=== PATIENT | female | born 1945 | race Hispanic/Latino ===

== ENCOUNTER 2022-01-09 13:58 | Inpatient (IN) | payer MEDICARE, OTHER ==
[~2022-01-09] VITALS: Ht 149.9 cm; Wt 93.9 kg
[~2022-01-09 13:58] MED LIST: AMLODIPINE BESY10 MG PO; ASPIR-LOW81 MG PO; ATORVASTATIN CA20 MG PO; CARVEDILOL3.125 MG PO; CEFUROXIME250 MG PO; GABAPENTIN300 MG PO; LISINOPRIL10 MG PO; LOSARTAN POTAS100 MG PO; METFORMIN HCL500 MG PO; METRONIDAZOLE500 MG PO; MULTI-VITAMIN1 EACH PO; NORCO 7.5-3251 EACH PO; ZOFRAN ODT4 MG SL
[2022-01-09 14:52] LABS: BASOPHILS % 0.2 % (0.0-1.0); EOSINOPHILS % 0.2 % (0.0-6.0); HEMATOCRIT 31.1 % (34.2-44.1); HEMOGLOBIN 10.9 g/dL (12.0-16.0); LYMPHOCYTES # (AUTO) 1.3 (1.0-3.2); LYMPHOCYTES % 23.8 % (18.0-39.1); MEAN CORPUSCULAR HEMOGLOBIN 29.5 pg (28-32); MEAN CORPUSCULAR VOLUME 84.1 fL (81-99); MONOCYTES # (AUTO) 0.6 (0.2-0.8); MONOCYTES % 11.1 % (4.4-11.3); NEUTROPHILS # (AUTO) 3.6 (2.1-6.9); NEUTROPHILS % 64.2 % (38.7-80.0); PLATELET COUNT 184 x10e3/uL (140-360); RED CELL DISTRIBUTION WIDTH 17.3 % (11.7-14.4)
[2022-01-09 15:11] LABS: ALBUMIN 2.8 g/dL (3.5-5.0); ALBUMIN/GLOBULIN RATIO 0.6 (0.8-2.0); ANION GAP 20.1 mmol/L (8-16); CALCIUM 8.4 mg/dL (8.4-10.2); CREATININE, SERUM 2.56 mg/dL (0.57-1.11); POTASSIUM 3.1 mmol/L (3.5-5.1)
[2022-01-09 15:17] LABS: CREATINE KINASE MB 1.5 ng/mL (0-5.0)
[2022-01-09] MEDS ORDERED: SODIUM CHLORIDE FLUSH 10 ML SYR INJ PRN (17:00)
[2022-01-09] MEDS ORDERED: SODIUM CHLORIDE 0.9% 1000ML 1,000 ML IV ONE ×2 (17:00→21:00)
[2022-01-09 21:19] LABS: CLARITY,URINE SL CLOUDY (CLEAR); COLOR,URINE YELLOW (YELLOW); LEUKOCYTE ESTERASE ,URINE SMALL (NEGATIVE); NITRITE,URINE NEGATIVE (NEGATIVE)
[2022-01-09 21:20] LABS: KETONES,URINE NEGATIVE (NEGATIVE); PROTEIN,URINE DIPSTICK TRACE (NEGATIVE); URINE UROBILINOGEN 0.2 mg/dL (0.2 - 1)
[2022-01-09 21:30] LABS: RBC,URINE 0-5 /HPF (0-5)
[2022-01-09 21:31] LABS: AMORPHOUS SEDIMENT,URINE MANY (FEW); BACTERIA,URINE MODERATE /HPF; EPITHELIAL CELLS,URINE FEW /LPF
[2022-01-10] VITALS (8 sets, daily range): BP systolic 98–127; BP diastolic 42–54
[2022-01-10] MEDS ORDERED: SODIUM CHLORIDE 0.9% 250ML 250 ML ONE ×2 (05:49→11:24)
[2022-01-10 05:53] LABS: BASOPHILS % 0.2 % (0.0-1.0); EOSINOPHILS % 0.5 % (0.0-6.0); HEMATOCRIT 26.6 % (34.2-44.1); HEMOGLOBIN 9.6 g/dL (12.0-16.0); LYMPHOCYTES # (AUTO) 1.7 (1.0-3.2); LYMPHOCYTES % 31.2 % (18.0-39.1); MEAN CORPUSCULAR HEMOGLOBIN 29.3 pg (28-32); MEAN CORPUSCULAR HGB CONC 36.1 g/dL (31-35); MEAN CORPUSCULAR VOLUME 81.1 fL (81-99); MONOCYTES # (AUTO) 0.9 (0.2-0.8); MONOCYTES % 16.6 % (4.4-11.3); NEUTROPHILS # (AUTO) 2.8 (2.1-6.9); PLATELET COUNT 166 x10e3/uL (140-360); RED BLOOD COUNT 3.28 x10e6/uL (3.6-5.1); RED CELL DISTRIBUTION WIDTH 17.7 % (11.7-14.4)
[2022-01-10 06:15] LABS: ALBUMIN 2.3 g/dL (3.5-5.0); ALBUMIN/GLOBULIN RATIO 0.6 (0.8-2.0); ANION GAP 20.7 mmol/L (8-16); CALCIUM 8.3 mg/dL (8.4-10.2); CREATININE, SERUM 2.22 mg/dL (0.57-1.11)
[2022-01-10 06:26] LABS: POTASSIUM 2.7 mmol/L (3.5-5.1)
[2022-01-10] MEDS ORDERED: MAGNESIUM SULFATE 2GM/50ML IV ONE (08:15)
[2022-01-10] MEDS: POTASSIUM CHLORIDE 20MEQ/100ML 100 ML IV SCH ×2 (08:45→10:45)
[2022-01-10] MEDS ORDERED: MAGNESIUM SULFATE 2GM/50ML 50 ML IV ONE (08:45)
[2022-01-10] MEDS ORDERED: ONDANSETRON HCL INJ 2MG/ML 2ML 2 MG/ML VIAL IV PRN (10:00)
[2022-01-10] MEDS ORDERED: DEXTROSE 50% SYRINGE 50 ML IV PRN (10:00)
[2022-01-10] MEDS ORDERED: ACETAMINOPHEN 325 MG TAB PO PRN (10:00)
[2022-01-10] MEDS: SOD CHL 0.45%/POT CHL 20MEQ 1,000 ML IV SCH (10:25)
[2022-01-10] MEDS: INSULIN LISPRO 100 UNIT/1 ML 3ML VIAL SQ SCH ×3 (11:30→21:53)
[2022-01-10 15:37] LABS: ANION GAP 18.4 mmol/L (8-16); CALCIUM 8.7 mg/dL (8.4-10.2); CREATININE, SERUM 2.22 mg/dL (0.57-1.11); POTASSIUM 3.4 mmol/L (3.5-5.1)
[2022-01-10] MEDS: CARVEDILOL 3.125 MG TAB PO SCH (16:30)
[2022-01-11] VITALS (7 sets, daily range): BP systolic 97–113; BP diastolic 42–77
[2022-01-11] MEDS: SOD CHL 0.45%/POT CHL 20MEQ 1,000 ML IV SCH ×3 (01:06→13:35)
[2022-01-11 06:05] LABS: BASOPHILS % 0.2 % (0.0-1.0); EOSINOPHILS # (AUTO) 0.1 (0.0-0.4); EOSINOPHILS % 1.2 % (0.0-6.0); HEMATOCRIT 28.2 % (34.2-44.1); HEMOGLOBIN 9.8 g/dL (12.0-16.0); LYMPHOCYTES # (AUTO) 1.8 (1.0-3.2); LYMPHOCYTES % 33.9 % (18.0-39.1); MEAN CORPUSCULAR HEMOGLOBIN 29.3 pg (28-32); MEAN CORPUSCULAR HGB CONC 34.8 g/dL (31-35); MEAN CORPUSCULAR VOLUME 84.4 fL (81-99); MONOCYTES # (AUTO) 0.8 (0.2-0.8); MONOCYTES % 15.5 % (4.4-11.3); NEUTROPHILS # (AUTO) 2.5 (2.1-6.9); NEUTROPHILS % 48.6 % (38.7-80.0); PLATELET COUNT 179 x10e3/uL (140-360); RED BLOOD COUNT 3.34 x10e6/uL (3.6-5.1); RED CELL DISTRIBUTION WIDTH 18.4 % (11.7-14.4)
[2022-01-11 06:34] LABS: ALBUMIN 2.3 g/dL (3.5-5.0); ALBUMIN/GLOBULIN RATIO 0.5 (0.8-2.0); ANION GAP 20.3 mmol/L (8-16); CALCIUM 8.5 mg/dL (8.4-10.2); CREATININE, SERUM 1.9 mg/dL (0.57-1.11); POTASSIUM 3.3 mmol/L (3.5-5.1)
[2022-01-11] MEDS: INSULIN LISPRO 100 UNIT/1 ML 3ML VIAL SQ SCH ×4 (07:30→21:42)
[2022-01-11] MEDS: CARVEDILOL 3.125 MG TAB PO SCH ×2 (09:01→16:19)
[2022-01-11 10:31] LABS: ALBUMIN 2.5 g/dL (3.5-5.0); BILIRUBIN,DIRECT 2.8 mg/dL (0.0-0.5)
[2022-01-11] MEDS ORDERED: POTASSIUM BICARBONATE/CIT AC 20 MEQ TABLET.EFF PO ONE (11:30)
[2022-01-12] VITALS (9 sets, daily range): BP systolic 102–121; BP diastolic 48–59
[2022-01-12] MEDS: SOD CHL 0.45%/POT CHL 20MEQ 1,000 ML IV SCH ×3 (02:11→22:33)
[2022-01-12] MEDS: CARVEDILOL 3.125 MG TAB PO SCH ×2 (08:44→17:04)
[2022-01-12] MEDS: INSULIN LISPRO 100 UNIT/1 ML 3ML VIAL SQ SCH ×5 (08:52→22:06)
[2022-01-12] MEDS ORDERED: OMEPRAZOLE 20 MG CAP PO SCH (09:00)
[2022-01-13] VITALS (8 sets, daily range): BP systolic 104–124; BP diastolic 45–57
[2022-01-13 06:08] LABS: ALBUMIN 2.4 g/dL (3.5-5.0); ALBUMIN/GLOBULIN RATIO 0.6 (0.8-2.0); CALCIUM 9.3 mg/dL (8.4-10.2); CREATININE, SERUM 1.19 mg/dL (0.57-1.11)
[2022-01-13] MEDS: OMEPRAZOLE 20 MG CAP PO SCH (06:42)
[2022-01-13] MEDS: SOD CHL 0.45%/POT CHL 20MEQ 1,000 ML IV SCH ×2 (06:57→16:30)
[2022-01-13] MEDS: CARVEDILOL 3.125 MG TAB PO SCH ×2 (08:42→16:24)
[2022-01-13] MEDS: INSULIN LISPRO 100 UNIT/1 ML 3ML VIAL SQ SCH ×4 (08:46→21:46)
[2022-01-13 14:14] LABS: ALPHA-1-ANTITRYPSIN 202 mg/dL (101-187)
[2022-01-14] VITALS (7 sets, daily range): BP systolic 96–131; BP diastolic 46–74
[2022-01-14] MEDS: SOD CHL 0.45%/POT CHL 20MEQ 1,000 ML IV SCH (03:28)
[2022-01-14] MEDS ORDERED: MELATONIN 5 MG TABLET PO PRN (03:30)
[2022-01-14] MEDS: HYDROCODONE/APAP 7.5MG-325MG 1 EA TAB PO PRN (05:20)
[2022-01-14] MEDS: OMEPRAZOLE 20 MG CAP PO SCH (05:30)
[2022-01-14 06:27] LABS: INR 1.04; PROTHROMBIN TIME 14.5 seconds (11.9-14.5)
[2022-01-14 06:45] LABS: ALBUMIN 2.3 g/dL (3.5-5.0); ANION GAP 15.7 mmol/L (8-16); BILIRUBIN,DIRECT 4.5 mg/dL (0.0-0.5); CALCIUM 8.9 mg/dL (8.4-10.2); CREATININE, SERUM 1.1 mg/dL (0.57-1.11); POTASSIUM 3.7 mmol/L (3.5-5.1)
[2022-01-14] MEDS: INSULIN LISPRO 100 UNIT/1 ML 3ML VIAL SQ SCH ×4 (07:30→21:00)
[2022-01-14] MEDS: CARVEDILOL 3.125 MG TAB PO SCH ×2 (07:30→16:43)
[2022-01-14] MEDS ORDERED: PROMETHAZINE 12.5MG/ NACL 0.9% 12.5 MG/50 ML BAG IV ONE (10:45)
[2022-01-14 12:03] LABS: AMYLASE 94 U/L (25-125); LIPASE 78 U/L (8-78)
[2022-01-14] MEDS: DEXTROSE 5%/0.45% SOD CHL 1,000 ML IV SCH (12:25)
[2022-01-14] MEDS ORDERED: ONDANSETRON HCL 4 MG ORAL DISINTEGRATING TAB PO PRN (19:00)
[2022-01-14] MEDS ORDERED: TRAZODONE HCL 50 MG TAB PO PRN (19:00)
[2022-01-15] VITALS (8 sets, daily range): BP systolic 118–142; BP diastolic 41–78
[2022-01-15] MEDS: DEXTROSE 5%/0.45% SOD CHL 1,000 ML IV SCH ×3 (01:51→17:06)
[2022-01-15] MEDS: OMEPRAZOLE 20 MG CAP PO SCH (05:23)
[2022-01-15 06:42] LABS: INR 1.08
[2022-01-15 06:53] LABS: ALBUMIN 2.3 g/dL (3.5-5.0); ALBUMIN/GLOBULIN RATIO 0.5 (0.8-2.0); ANION GAP 12.9 mmol/L (8-16); CALCIUM 9.4 mg/dL (8.4-10.2); CREATININE, SERUM 1.18 mg/dL (0.57-1.11); POTASSIUM 3.9 mmol/L (3.5-5.1)
[2022-01-15] MEDS: INSULIN LISPRO 100 UNIT/1 ML 3ML VIAL SQ SCH ×4 (07:17→21:51)
[2022-01-15] MEDS: CARVEDILOL 3.125 MG TAB PO SCH ×2 (07:30→16:30)
[2022-01-15] MEDS ORDERED: LIDOCAINE HCL 4% 50 ML BTL ONE (12:50)
[2022-01-15] MEDS ORDERED: MIDAZOLAM HCL 2 MG/2 ML VIAL ONE (12:59)
[2022-01-15] MEDS ORDERED: IOPAMIDOL 300MG/ML 50ML INFUS..BTL IV ONE (13:16)
[2022-01-15] MEDS: HYDROCODONE/APAP 7.5MG-325MG 1 EA TAB PO PRN (17:11)
[2022-01-15] MEDS ORDERED: LIDOCAINE HCL 2% LOCAL INJ 5 ML SDV VIAL INJ ONE (19:34)
[2022-01-15] MEDS ORDERED: PROPOFOL IV EMULSION 10 MG/ML 20 ML VIAL ONE (19:34)
[2022-01-16 00:01] VITALS: BP 131/54
[2022-01-16] MEDS: DEXTROSE 5%/0.45% SOD CHL 1,000 ML IV SCH (03:45)
[2022-01-16 04:42] VITALS: BP 147/62
[2022-01-16] MEDS: OMEPRAZOLE 20 MG CAP PO SCH ×2 (05:51→05:52)
[2022-01-16 05:54] LABS: BASOPHILS % 0.3 % (0.0-1.0); EOSINOPHILS # (AUTO) 0.1 (0.0-0.4); EOSINOPHILS % 1.5 % (0.0-6.0); HEMATOCRIT 28.5 % (34.2-44.1); HEMOGLOBIN 9.9 g/dL (12.0-16.0); LYMPHOCYTES # (AUTO) 1.6 (1.0-3.2); MEAN CORPUSCULAR HGB CONC 34.7 g/dL (31-35); MEAN CORPUSCULAR VOLUME 83.6 fL (81-99); MONOCYTES # (AUTO) 0.6 (0.2-0.8); MONOCYTES % 9.7 % (4.4-11.3); NEUTROPHILS # (AUTO) 3.5 (2.1-6.9); NEUTROPHILS % 60.3 % (38.7-80.0); PLATELET COUNT 225 x10e3/uL (140-360); RED BLOOD COUNT 3.41 x10e6/uL (3.6-5.1)
[2022-01-16 06:27] LABS: ALBUMIN 2.6 g/dL (3.5-5.0); ALBUMIN/GLOBULIN RATIO 0.6 (0.8-2.0); ANION GAP 17.6 mmol/L (8-16); CALCIUM 9.7 mg/dL (8.4-10.2); CREATININE, SERUM 1.1 mg/dL (0.57-1.11); POTASSIUM 3.6 mmol/L (3.5-5.1)
[2022-01-16] MEDS: INSULIN LISPRO 100 UNIT/1 ML 3ML VIAL SQ SCH (07:30)
[2022-01-16] MEDS: CARVEDILOL 3.125 MG TAB PO SCH (08:27)
[2022-01-16 08:47] VITALS: BP 126/59
[2022-01-16 08:55] VITALS: BP 126/59
[2022-01-16] MEDS ORDERED: COREG3.125 MG PO (09:30)
== END 2022-01-16 10:47 | disposition home or self-care (01) | DRG 444 ==
LOC: ER 14:25 → ERHOLD 16:52 → MED/SURG2 22:45
PROVIDERS: ADMIT Internal Medicine; ATTEND Internal Medicine
PROC: 0F798DZ Dilation of Common Bile Duct with Intraluminal Device, Via Natural or Artificial Opening Endoscopic (ICD-10-PCS; 2022-01-15)
PROC: 0FD98ZX Extraction of Common Bile Duct, Via Natural or Artificial Opening Endoscopic, Diagnostic (ICD-10-PCS; principal; 2022-01-15 12:56)
DX: K83.8 Other specified diseases of biliary tract (principal); N17.0 Acute kidney failure with tubular necrosis; R17 Unspecified jaundice; Z68.41 Body mass index [BMI] 40.0-44.9, adult; N39.0 Urinary tract infection, site not specified; N18.30 Chronic kidney disease, stage 3 unspecified; E87.6 Hypokalemia; E11.22 Type 2 diabetes mellitus with diabetic chronic kidney disease; I12.9 Hypertensive chronic kidney disease with stage 1 through stage 4 chronic kidney disease, or unspecified chronic kidney disease; E66.9 Obesity, unspecified; R29.6 Repeated falls; D64.9 Anemia, unspecified; Z20.822 Contact with and (suspected) exposure to COVID-19; Z86.73 Personal history of transient ischemic attack (TIA), and cerebral infarction without residual deficits; E78.5 Hyperlipidemia, unspecified; E11.69 Type 2 diabetes mellitus with other specified complication; I25.10 Atherosclerotic heart disease of native coronary artery without angina pectoris; E86.0 Dehydration; R33.9 Retention of urine, unspecified; I25.2 Old myocardial infarction; Z79.899 Other long term (current) drug therapy; Z79.4 Long term (current) use of insulin
CPT/HCPCS: 0223U; 36415; 43260; 51700; 70450; 71045; 71250; 74176; 74181; 74328; 76770; 80048; 80053; 80076; 81001; 82103; 82140; 82150; 82390; 82550; 82553; 82948; 83690; 83735; 84484; 85025; 85610; 86039; 86255; 86301; 86304; 87070; 87205; 93005; 96372; 99251; 99284; J2001; J2250; J2405; J2543; J2550; J3475; J3480; J7030; J7050; Q0162

== ENCOUNTER 2022-02-15 15:10 | Inpatient (IN) | payer MEDICARE ==
[~2022-02-15] VITALS: Ht 149.9 cm; Wt 93.9 kg
[~2022-02-15 15:10] MED LIST changes: +COREG3.125 MG PO
[2022-02-15] MEDS ORDERED: SODIUM CHLORIDE 0.9% 1000ML 1,000 ML IV STA (15:14)
[2022-02-15] MEDS ORDERED: ACETAMINOPHEN 325 MG TAB PO STA (15:14)
[2022-02-15 15:57] LABS: BASOPHILS # (AUTO) 0.1 (0.0-0.1); BASOPHILS % 0.3 % (0.0-1.0); HEMATOCRIT 32.2 % (34.2-44.1); HEMOGLOBIN 10.7 g/dL (12.0-16.0); LYMPHOCYTES # (AUTO) 0.8 (1.0-3.2); LYMPHOCYTES % 4.9 % (18.0-39.1); MEAN CORPUSCULAR HEMOGLOBIN 29.3 pg (28-32); MEAN CORPUSCULAR HGB CONC 33.2 g/dL (31-35); MEAN CORPUSCULAR VOLUME 88.2 fL (81-99); MONOCYTES # (AUTO) 0.9 (0.2-0.8); MONOCYTES % 5.5 % (4.4-11.3); NEUTROPHILS # (AUTO) 14.5 (2.1-6.9); NEUTROPHILS % 87.5 % (38.7-80.0); PLATELET COUNT 346 x10e3/uL (140-360); RED BLOOD COUNT 3.65 x10e6/uL (3.6-5.1); RED CELL DISTRIBUTION WIDTH 18.4 % (11.7-14.4)
[2022-02-15 16:12] LABS: PROTHROMBIN TIME 14.1 seconds (11.9-14.5)
[2022-02-15 16:13] LABS: PARTIAL THROMBOPLASTIN TIME 27.9 seconds (23.8-35.5)
[2022-02-15 16:23] LABS: ALBUMIN 2.5 g/dL (3.5-5.0); ALBUMIN/GLOBULIN RATIO 0.5 (0.8-2.0); ANION GAP 18.5 mmol/L (8-16); CREATININE, SERUM 1.2 mg/dL (0.57-1.11); POTASSIUM 4.5 mmol/L (3.5-5.1)
[2022-02-15 16:29] LABS: CREATINE KINASE MB 0.7 ng/mL (0-5.0)
[2022-02-15] MEDS ORDERED: SODIUM CHLORIDE 0.9% 1000ML 1,000 ML IV SCH (16:30)
[2022-02-15] MEDS ORDERED: Morphine 4mg INJECTION 4 MG/ML INJ IV PRN (16:30)
[2022-02-15] MEDS ORDERED: ONDANSETRON HCL INJ 2MG/ML 2ML 2 MG/ML VIAL IV PRN (16:30)
[2022-02-15] MEDS ORDERED: SODIUM CHLORIDE 0.9% 1000ML 500 ML IV ONE (17:00)
[2022-02-15] MEDS ORDERED: IOPAMIDOL 370 MG/ML 100 ML INFUS..BTL INJ ONE (17:27)
[2022-02-15 20:00] VITALS: BP 105/52
[2022-02-15 23:07] LABS: CLARITY,URINE CLOUDY (CLEAR); COLOR,URINE AMBER (YELLOW); KETONES,URINE NEGATIVE (NEGATIVE); LEUKOCYTE ESTERASE ,URINE MODERATE (NEGATIVE); NITRITE,URINE NEGATIVE (NEGATIVE); PROTEIN,URINE DIPSTICK TRACE (NEGATIVE); URINE UROBILINOGEN 1 mg/dL (0.2 - 1)
[2022-02-15 23:10] VITALS: BP 105/52
[2022-02-15 23:13] LABS: BACTERIA,URINE MODERATE /HPF; EPITHELIAL CELLS,URINE FEW /LPF; WBC,URINE (MAN) >50 /HPF (0-5)
[2022-02-15 23:31] VITALS: BP 105/52
[2022-02-16] VITALS (10 sets, daily range): BP systolic 88–135; BP diastolic 43–62
[2022-02-16] MEDS: SODIUM CHLORIDE 0.9% 1000ML 1,000 ML IV SCH ×4 (01:20→23:00)
[2022-02-16] MEDS: ONDANSETRON HCL INJ 2MG/ML 2ML 2 MG/ML VIAL IV PRN ×2 (01:31→12:24)
[2022-02-16] MEDS: Morphine 4mg INJECTION 4 MG/ML INJ IV PRN ×2 (01:32→12:24)
[2022-02-16] MEDS: ACETAMINOPHEN 325 MG TAB PO PRN ×2 (05:17→16:42)
[2022-02-16 08:52] LABS: ALBUMIN 1.8 g/dL (3.5-5.0); BILIRUBIN,DIRECT 3.7 mg/dL (0.0-0.5)
[2022-02-16] MEDS ORDERED: DEXTROSE 50% SYRINGE 50 ML IV PRN (11:30)
[2022-02-16] MEDS: INSULIN LISPRO 100 UNIT/1 ML 3ML VIAL SQ SCH ×3 (12:20→20:28)
[2022-02-16] MEDS ORDERED: METRONIDAZOLE 500MG/NS 100ML 100 ML IV SCH (14:00)
[2022-02-16] MEDS ORDERED: LACTATED RINGER'S 1,000 ML IV ONE (20:45)
[2022-02-16] MEDS ORDERED: IBUPROFEN 400 MG TAB PO ONE (20:45)
[2022-02-16] MEDS ORDERED: ENOXAPARIN 30 MG/0.3 ML SYR SC ONE (23:15)
[2022-02-17] VITALS (8 sets, daily range): BP systolic 91–113; BP diastolic 41–77
[2022-02-17] MEDS: DEXTROSE 5%/LACTATED RINGERS 1,000 ML IV SCH ×3 (01:25→16:32)
[2022-02-17 06:16] LABS: BASOPHILS # (AUTO) 0.1 (0.0-0.1); BASOPHILS % 0.3 % (0.0-1.0); EOSINOPHILS % 0.1 % (0.0-6.0); HEMATOCRIT 25.2 % (34.2-44.1); HEMOGLOBIN 8.5 g/dL (12.0-16.0); LYMPHOCYTES # (AUTO) 1.5 (1.0-3.2); LYMPHOCYTES % 8.5 % (18.0-39.1); MEAN CORPUSCULAR HEMOGLOBIN 29.5 pg (28-32); MEAN CORPUSCULAR HGB CONC 33.7 g/dL (31-35); MEAN CORPUSCULAR VOLUME 87.5 fL (81-99); MONOCYTES # (AUTO) 1.1 (0.2-0.8); MONOCYTES % 6.7 % (4.4-11.3); NEUTROPHILS # (AUTO) 13.8 (2.1-6.9); NEUTROPHILS % 80.4 % (38.7-80.0); PLATELET COUNT 254 x10e3/uL (140-360); RED BLOOD COUNT 2.88 x10e6/uL (3.6-5.1); RED CELL DISTRIBUTION WIDTH 19.5 % (11.7-14.4)
[2022-02-17 06:50] LABS: ALBUMIN 1.7 g/dL (3.5-5.0); BILIRUBIN,DIRECT 2.8 mg/dL (0.0-0.5); CALCIUM 7.9 mg/dL (8.4-10.2); CREATININE, SERUM 1.68 mg/dL (0.57-1.11)
[2022-02-17] MEDS: INSULIN LISPRO 100 UNIT/1 ML 3ML VIAL SQ SCH ×4 (08:10→22:08)
[2022-02-17] MEDS ORDERED: ALLERGY EYE RELIEF OU (13:14)
[2022-02-17] MEDS ORDERED: NEURONTIN300 MG PO (13:14)
[2022-02-17] MEDS ORDERED: ACETAMINOPHEN COD PO (13:14)
[2022-02-17] MEDS ORDERED: [UNRECOGNIZED DRUG - OTHER] PO (13:14)
[2022-02-17] MEDS ORDERED: OMEPRAZOLE40 MG PO (13:14)
[2022-02-17] MEDS ORDERED: POTASSIUM GLUCONATE PO (13:14)
[2022-02-17] MEDS ORDERED: POTASSIUM GLUC PO (13:17)
[2022-02-17] MEDS: Morphine 2mg Syringe 2 MG/ML SYR IV PRN (22:08)
[2022-02-18] VITALS (7 sets, daily range): BP systolic 113–126; BP diastolic 47–84
[2022-02-18] MEDS: DEXTROSE 5%/LACTATED RINGERS 1,000 ML IV SCH (02:27)
[2022-02-18 06:12] LABS: BASOPHILS % 0.2 % (0.0-1.0); EOSINOPHILS % 0.3 % (0.0-6.0); HEMATOCRIT 25.2 % (34.2-44.1); HEMOGLOBIN 8.7 g/dL (12.0-16.0); LYMPHOCYTES # (AUTO) 1.3 (1.0-3.2); MEAN CORPUSCULAR HEMOGLOBIN 29.6 pg (28-32); MEAN CORPUSCULAR HGB CONC 34.5 g/dL (31-35); MEAN CORPUSCULAR VOLUME 85.7 fL (81-99); MONOCYTES # (AUTO) 0.7 (0.2-0.8); MONOCYTES % 5.2 % (4.4-11.3); NEUTROPHILS # (AUTO) 9.9 (2.1-6.9); NEUTROPHILS % 78.5 % (38.7-80.0); PLATELET COUNT 267 x10e3/uL (140-360); RED BLOOD COUNT 2.94 x10e6/uL (3.6-5.1); RED CELL DISTRIBUTION WIDTH 19.4 % (11.7-14.4)
[2022-02-18 06:32] LABS: ALBUMIN 1.7 g/dL (3.5-5.0); ANION GAP 16.9 mmol/L (8-16); BILIRUBIN,DIRECT 3.4 mg/dL (0.0-0.5); CALCIUM 8.1 mg/dL (8.4-10.2); CREATININE, SERUM 1.66 mg/dL (0.57-1.11); POTASSIUM 3.9 mmol/L (3.5-5.1)
[2022-02-18] MEDS: INSULIN LISPRO 100 UNIT/1 ML 3ML VIAL SQ SCH ×4 (09:03→20:25)
[2022-02-18] MEDS: Morphine 2mg Syringe 2 MG/ML SYR IV PRN ×3 (09:05→20:22)
[2022-02-18] MEDS: CEFTRIAXONE 2 GM in SODIUM CHLORIDE 0.9% 100 ML IV SCH (16:34)
[2022-02-19] VITALS (7 sets, daily range): BP systolic 105–153; BP diastolic 45–84
[2022-02-19] MEDS: Morphine 2mg Syringe 2 MG/ML SYR IV PRN ×2 (05:47→10:12)
[2022-02-19 06:18] LABS: BASOPHILS # (AUTO) 0.1 (0.0-0.1); BASOPHILS % 0.4 % (0.0-1.0); EOSINOPHILS # (AUTO) 0.1 (0.0-0.4); EOSINOPHILS % 0.7 % (0.0-6.0); HEMATOCRIT 29.5 % (34.2-44.1); HEMOGLOBIN 9.9 g/dL (12.0-16.0); LYMPHOCYTES # (AUTO) 1.7 (1.0-3.2); LYMPHOCYTES % 12.7 % (18.0-39.1); MEAN CORPUSCULAR HEMOGLOBIN 29.2 pg (28-32); MEAN CORPUSCULAR HGB CONC 33.6 g/dL (31-35); MONOCYTES # (AUTO) 0.9 (0.2-0.8); NEUTROPHILS # (AUTO) 10.2 (2.1-6.9); NEUTROPHILS % 76.4 % (38.7-80.0); PLATELET COUNT 281 x10e3/uL (140-360); RED BLOOD COUNT 3.39 x10e6/uL (3.6-5.1); RED CELL DISTRIBUTION WIDTH 19.6 % (11.7-14.4)
[2022-02-19 06:45] LABS: ALBUMIN 1.7 g/dL (3.5-5.0); ALBUMIN/GLOBULIN RATIO 0.4 (0.8-2.0); ANION GAP 15.2 mmol/L (8-16); CALCIUM 8.8 mg/dL (8.4-10.2); CREATININE, SERUM 1.48 mg/dL (0.57-1.11); POTASSIUM 4.2 mmol/L (3.5-5.1)
[2022-02-19] MEDS: INSULIN LISPRO 100 UNIT/1 ML 3ML VIAL SQ SCH ×4 (07:30→21:10)
[2022-02-19] MEDS: CEFTRIAXONE 2 GM in SODIUM CHLORIDE 0.9% 100 ML IV SCH (13:21)
[2022-02-20] VITALS (7 sets, daily range): BP systolic 123–168; BP diastolic 50–62
[2022-02-20 06:13] LABS: BASOPHILS # (AUTO) 0.1 (0.0-0.1); BASOPHILS % 0.4 % (0.0-1.0); EOSINOPHILS % 0.3 % (0.0-6.0); HEMATOCRIT 27.4 % (34.2-44.1); HEMOGLOBIN 9.1 g/dL (12.0-16.0); LYMPHOCYTES # (AUTO) 1.4 (1.0-3.2); LYMPHOCYTES % 11.1 % (18.0-39.1); MEAN CORPUSCULAR HEMOGLOBIN 28.9 pg (28-32); MEAN CORPUSCULAR HGB CONC 33.2 g/dL (31-35); MONOCYTES # (AUTO) 0.9 (0.2-0.8); MONOCYTES % 7.2 % (4.4-11.3); NEUTROPHILS # (AUTO) 9.7 (2.1-6.9); PLATELET COUNT 296 x10e3/uL (140-360); RED BLOOD COUNT 3.15 x10e6/uL (3.6-5.1); RED CELL DISTRIBUTION WIDTH 19.4 % (11.7-14.4)
[2022-02-20 06:40] LABS: ALBUMIN 1.7 g/dL (3.5-5.0); ALBUMIN/GLOBULIN RATIO 0.4 (0.8-2.0); CALCIUM 8.6 mg/dL (8.4-10.2)
[2022-02-20 07:00] LABS: CREATININE, SERUM 1.26 mg/dL (0.57-1.11)
[2022-02-20] MEDS: INSULIN LISPRO 100 UNIT/1 ML 3ML VIAL SQ SCH ×4 (08:30→21:00)
[2022-02-20] MEDS: CEFTRIAXONE 2 GM in SODIUM CHLORIDE 0.9% 100 ML IV SCH (12:39)
[2022-02-20] MEDS ORDERED: LACTATED RINGER'S 1,000 ML INJ ONE (20:15)
[2022-02-21] VITALS (8 sets, daily range): BP systolic 110–153; BP diastolic 50–113
[2022-02-21 06:07] LABS: INR 1.1; PROTHROMBIN TIME 15.2 seconds (11.9-14.5)
[2022-02-21 06:12] LABS: ALBUMIN 1.6 g/dL (3.5-5.0); ALBUMIN/GLOBULIN RATIO 0.4 (0.8-2.0); ANION GAP 14.9 mmol/L (8-16); CALCIUM 8.6 mg/dL (8.4-10.2); CREATININE, SERUM 1.03 mg/dL (0.57-1.11); POTASSIUM 3.9 mmol/L (3.5-5.1)
[2022-02-21] MEDS: INSULIN LISPRO 100 UNIT/1 ML 3ML VIAL SQ SCH ×4 (07:30→21:16)
[2022-02-21 07:52] LABS: BASOPHILS % 0.3 % (0.0-1.0); EOSINOPHILS # (AUTO) 0.1 (0.0-0.4); EOSINOPHILS % 0.4 % (0.0-6.0); HEMATOCRIT 27.4 % (34.2-44.1); HEMOGLOBIN 9.4 g/dL (12.0-16.0); LYMPHOCYTES # (AUTO) 1.6 (1.0-3.2); LYMPHOCYTES % 13.5 % (18.0-39.1); MEAN CORPUSCULAR HGB CONC 34.3 g/dL (31-35); MEAN CORPUSCULAR VOLUME 84.6 fL (81-99); MONOCYTES # (AUTO) 0.8 (0.2-0.8); MONOCYTES % 6.9 % (4.4-11.3); NEUTROPHILS # (AUTO) 8.7 (2.1-6.9); NEUTROPHILS % 74.8 % (38.7-80.0); PLATELET COUNT 369 x10e3/uL (140-360); RED BLOOD COUNT 3.24 x10e6/uL (3.6-5.1); RED CELL DISTRIBUTION WIDTH 19.1 % (11.7-14.4)
[2022-02-21] MEDS ORDERED: LIDOCAINE HCL 4% 50 ML BTL ONE (12:21)
[2022-02-21] MEDS ORDERED: IOPAMIDOL 300MG/ML 50ML INFUS..BTL IV ONE (12:22)
[2022-02-21] MEDS ORDERED: POVIDONE IODINE 0.05% 0.05 % ML PO ONE (12:45)
[2022-02-21] MEDS ORDERED: DEXAMETHASONE SOD PHOS INJ 4 MG/ML SDV ONE (12:45)
[2022-02-21] MEDS ORDERED: LIDOCAINE HCL 2% LOCAL INJ 5 ML SDV VIAL INJ ONE (12:45)
[2022-02-21] MEDS ORDERED: PROPOFOL IV EMULSION 10 MG/ML 20 ML VIAL ONE (12:45)
[2022-02-21] MEDS ORDERED: ROCURONIUM BROMIDE 10 MG/ML 5ML VIAL IV ONE (12:45)
[2022-02-21] MEDS ORDERED: ONDANSETRON HCL INJ 2MG/ML 2ML 2 MG/ML VIAL ONE (12:45)
[2022-02-21] MEDS ORDERED: SEVOFLURANE INHAL SOLN 250 ML PEN BTL ONE (12:45)
[2022-02-21] MEDS ORDERED: SUCCINYLCHOLINE CHLORIDE 20 MG/ML 10ML VIAL ONE (12:45)
[2022-02-21] MEDS: CEFTRIAXONE 2 GM in SODIUM CHLORIDE 0.9% 100 ML IV SCH (13:29)
[2022-02-21] MEDS: ACETAMINOPHEN 325 MG TAB PO PRN (14:56)
[2022-02-21] MEDS ORDERED: ONDANSETRON HCL 4 MG ORAL DISINTEGRATING TAB PO PRN (16:45)
[2022-02-21] MEDS ORDERED: ACETAMINOPHEN/CODEINE 300MG - 30MG TAB PO PRN (16:45)
[2022-02-21] MEDS: Morphine 2mg Syringe 2 MG/ML SYR IV PRN (20:41)
[2022-02-22 01:19] VITALS: BP 163/70
[2022-02-22 04:31] VITALS: BP 146/70
[2022-02-22 05:36] LABS: ALBUMIN 1.9 g/dL (3.5-5.0); BILIRUBIN,DIRECT 4.1 mg/dL (0.0-0.5)
[2022-02-22 08:00] VITALS: BP 139/52
[2022-02-22] MEDS: INSULIN LISPRO 100 UNIT/1 ML 3ML VIAL SQ SCH ×2 (08:00→11:45)
[2022-02-22 08:08] VITALS: BP 139/52
[2022-02-22 11:26] VITALS: BP 118/60
[2022-02-22] MEDS: CEFTRIAXONE 2 GM in SODIUM CHLORIDE 0.9% 100 ML IV SCH (13:37)
[2022-02-22 15:24] VITALS: BP 129/55
== END 2022-02-22 16:21 | disposition home or self-care (01) | DRG 698 ==
LOC: ER 15:20 → ERHOLD 16:22 → ER 17:43 → MED/SURG3 18:22
PROVIDERS: ADMIT Internal Medicine; ATTEND Internal Medicine
PROC: 3E03329 Introduction of Other Anti-infective into Peripheral Vein, Percutaneous Approach (ICD-10-PCS; 2022-02-18)
PROC: 0FB98ZX Excision of Common Bile Duct, Via Natural or Artificial Opening Endoscopic, Diagnostic (ICD-10-PCS; 2022-02-21)
PROC: 0FPB8DZ Removal of Intraluminal Device from Hepatobiliary Duct, Via Natural or Artificial Opening Endoscopic (ICD-10-PCS; 2022-02-21)
PROC: BF101ZZ Fluoroscopy of Bile Ducts using Low Osmolar Contrast (ICD-10-PCS; 2022-02-21)
PROC: 0F798DZ Dilation of Common Bile Duct with Intraluminal Device, Via Natural or Artificial Opening Endoscopic (ICD-10-PCS; principal; 2022-02-21 13:09)
DX: T83.593A Infection and inflammatory reaction due to other urinary stents, initial encounter (principal); C22.1 Intrahepatic bile duct carcinoma; A41.50 Gram-negative sepsis, unspecified; A41.51 Sepsis due to Escherichia coli [E. coli]; R65.20 Severe sepsis without septic shock; Z68.41 Body mass index [BMI] 40.0-44.9, adult; N39.0 Urinary tract infection, site not specified; N17.9 Acute kidney failure, unspecified; I10 Essential (primary) hypertension; E11.9 Type 2 diabetes mellitus without complications; E66.01 Morbid (severe) obesity due to excess calories; G89.4 Chronic pain syndrome; D64.9 Anemia, unspecified
CPT/HCPCS: 36415; 43260; 71045; 74177; 74181; 74328; 80048; 80053; 80076; 81001; 82140; 82550; 82553; 82948; 83605; 83690; 84484; 85025; 85610; 85730; 86644; 86645; 86663; 86664; 86665; 87040; 87071; 87186; 87205; 87400; 88112; 88300; 88304; 88305; 88333; 93005; 94799; 99251; 99284; J0330; J0696; J1100; J1650; J2001; J2270; J2405; J2543; J7030; J7050; J7121; Q0162; Q9967

== ENCOUNTER 2022-04-08 23:11 | Inpatient (IN) | payer MEDICARE ==
[~2022-04-08] VITALS: Ht 149.9 cm; Wt 82.8 kg
[~2022-04-08 23:11] MED LIST changes: +ACETAMINOPHEN COD PO; +ALLERGY EYE RELIEF OU; +NEURONTIN300 MG PO; +OMEPRAZOLE40 MG PO; +POTASSIUM GLUC PO; +POTASSIUM GLUCONATE PO; +[UNRECOGNIZED DRUG - OTHER] PO
[2022-04-08] MEDS ORDERED: ASPIRIN 81 MG CHEW TAB PO ONE (23:30)
[2022-04-08] MEDS ORDERED: SODIUM CHLORIDE 0.9% 1000ML 1,000 ML IV ONE (23:45)
[2022-04-08 23:57] LABS: BASOPHILS % 0.1 % (0.0-1.0); EOSINOPHILS % 0.1 % (0.0-6.0); HEMATOCRIT 28.1 % (34.2-44.1); HEMOGLOBIN 8.6 g/dL (12.0-16.0); LYMPHOCYTES # (AUTO) 0.6 (1.0-3.2); LYMPHOCYTES % 4.1 % (18.0-39.1); MEAN CORPUSCULAR HEMOGLOBIN 31.5 pg (28-32); MEAN CORPUSCULAR HGB CONC 30.6 g/dL (31-35); MEAN CORPUSCULAR VOLUME 102.9 fL (81-99); MONOCYTES # (AUTO) 0.8 (0.2-0.8); NEUTROPHILS # (AUTO) 12.1 (2.1-6.9); PLATELET COUNT 229 x10e3/uL (140-360); RED BLOOD COUNT 2.73 x10e6/uL (3.6-5.1); RED CELL DISTRIBUTION WIDTH 15.7 % (11.7-14.4)
[2022-04-09] VITALS (41 sets, daily range): BP systolic 74–138; BP diastolic 17–107
[2022-04-09 00:15] LABS: ALBUMIN 1.9 g/dL (3.5-5.0); ALBUMIN/GLOBULIN RATIO 0.4 (0.8-2.0); ANION GAP 19.7 mmol/L (8-16); CALCIUM 8.4 mg/dL (8.4-10.2); CREATININE, SERUM 1.91 mg/dL (0.57-1.11); POTASSIUM 4.7 mmol/L (3.5-5.1)
[2022-04-09] MEDS ORDERED: SODIUM CHLORIDE 0.9% 500ML 500 ML IV ONE (00:15)
[2022-04-09] MEDS ORDERED: SODIUM CHLORIDE 0.9% 1000ML 1,000 ML IV ONE ×2 (00:15→02:45)
[2022-04-09 00:23] LABS: CREATINE KINASE MB 1.1 ng/mL (0-5.0)
[2022-04-09 02:24] LABS: CLARITY,URINE CLOUDY (CLEAR); COLOR,URINE AMBER (YELLOW); LEUKOCYTE ESTERASE ,URINE NEGATIVE (NEGATIVE)
[2022-04-09 02:25] LABS: KETONES,URINE NEGATIVE (NEGATIVE); NITRITE,URINE NEGATIVE (NEGATIVE); PROTEIN,URINE DIPSTICK 1+ (NEGATIVE); URINE UROBILINOGEN 0.2 mg/dL (0.2 - 1)
[2022-04-09 02:28] LABS: WBC,URINE (MAN) >50 /HPF (0-5)
[2022-04-09 02:29] LABS: BACTERIA,URINE MANY /HPF; EPITHELIAL CELLS,URINE FEW /LPF
[2022-04-09 02:30] LABS: TRANSITIONAL EPI CELLS,URINE MODERATE
[2022-04-09] MEDS ORDERED: SODIUM CHLORIDE 0.9% 1000ML 1,000 ML IV SCH (02:30)
[2022-04-09 02:31] LABS: MUCUS,URINE FEW (RARE)
[2022-04-09] MEDS: NOREPINEPHRINE 8 MG/D5W 250 ML 250 ML IV SCH ×5 (02:54→19:55)
[2022-04-09] MEDS ORDERED: NOREPINEPHRINE 8 MG/D5W 250 ML 250 ML ONE (03:04)
[2022-04-09] MEDS ORDERED: DEXTROSE 50% SYRINGE 50 ML IV PRN (04:30)
[2022-04-09] MEDS ORDERED: ONDANSETRON HCL INJ 2MG/ML 2ML 2 MG/ML VIAL IV PRN (04:30)
[2022-04-09 06:41] LABS: CREATINE KINASE MB 1.6 ng/mL (0-5.0)
[2022-04-09] MEDS: VASOPRESSIN 60 UNIT in DEXTROSE 5% 50ML 57 ML IV SCH (07:44)
[2022-04-09] MEDS: SODIUM BICARBONATE 8.4% 50 ML in SODIUM CHLORIDE 0.45% 1,000 ML IV SCH ×2 (08:01→18:41)
[2022-04-09] MEDS: INSULIN REGULAR, HUMAN 100 UNIT/1 ML SQ SCH ×4 (08:15→21:00)
[2022-04-09 08:25] LABS: BASOPHILS % 0.2 % (0.0-1.0); HEMATOCRIT 24.4 % (34.2-44.1); HEMOGLOBIN 7.5 g/dL (12.0-16.0); MEAN CORPUSCULAR HEMOGLOBIN 31.8 pg (28-32); MEAN CORPUSCULAR HGB CONC 30.7 g/dL (31-35); MEAN CORPUSCULAR VOLUME 103.4 fL (81-99); MONOCYTES # (AUTO) 1.5 (0.2-0.8); MONOCYTES % 5.9 % (4.4-11.3); NEUTROPHILS # (AUTO) 21.7 (2.1-6.9); NEUTROPHILS % 85.6 % (38.7-80.0); PLATELET COUNT 293 x10e3/uL (140-360); RED BLOOD COUNT 2.36 x10e6/uL (3.6-5.1); RED CELL DISTRIBUTION WIDTH 15.9 % (11.7-14.4)
[2022-04-09 08:44] LABS: ALBUMIN 1.7 g/dL (3.5-5.0); ALBUMIN/GLOBULIN RATIO 0.4 (0.8-2.0); CALCIUM 7.3 mg/dL (8.4-10.2); CREATININE, SERUM 1.78 mg/dL (0.57-1.11)
[2022-04-09 08:53] LABS: INR 1.27; PROTHROMBIN TIME 16.1 seconds (11.9-14.5)
[2022-04-09 08:54] LABS: PARTIAL THROMBOPLASTIN TIME 30.7 seconds (23.8-35.5)
[2022-04-09 09:30] LABS: BAND NEUTROPHILS % (MANUAL) 10 %; LYMPHOCYTES % (MANUAL) 5 % (19-48); METAMYELOCYTES % (MANUAL) 1 % (0-0); MONOCYTES % (MANUAL) 5 % (3.4-9.0); NEUTROPHILS % (MANUAL) 79 % (40-74); NUCLEATED RED BLOOD CELLS 2; PLATELET ESTIMATE ADEQUATE; PLATELET MORPHOLOGY COMMENT NORMAL
[2022-04-09] MEDS: FAMOTIDINE 20 MG/2 ML VIAL IV SCH ×2 (10:14→17:39)
[2022-04-09] MEDS ORDERED: SODIUM CHLORIDE 0.9% 1000ML 1,000 ML ONE (11:53)
[2022-04-09] MEDS: Morphine 2mg Syringe 2 MG/ML SYR IV PRN (13:24)
[2022-04-09 14:59] LABS: CREATINE KINASE MB 2.2 ng/mL (0-5.0)
[2022-04-09] MEDS ORDERED: GENTAMICIN 120MG/NS 100ML 100 ML IV ONE (17:30)
[2022-04-09] MEDS: ENOXAPARIN 30 MG/0.3 ML SYR SC SCH (17:39)
[2022-04-10] VITALS (56 sets, daily range): BP systolic 53–159; BP diastolic 34–143
[2022-04-10] MEDS: VASOPRESSIN 60 UNIT in DEXTROSE 5% 50ML 57 ML IV SCH (01:59)
[2022-04-10] MEDS: Morphine 2mg Syringe 2 MG/ML SYR IV PRN ×2 (02:49→20:57)
[2022-04-10] MEDS: SODIUM BICARBONATE 8.4% 50 ML in SODIUM CHLORIDE 0.45% 1,000 ML IV SCH ×2 (04:43→15:31)
[2022-04-10] MEDS: NOREPINEPHRINE 8 MG/D5W 250 ML 250 ML IV SCH ×3 (05:44→20:51)
[2022-04-10 06:22] LABS: BASOPHILS % 0.2 % (0.0-1.0); EOSINOPHILS % 0.1 % (0.0-6.0); HEMATOCRIT 25.5 % (34.2-44.1); HEMOGLOBIN 7.9 g/dL (12.0-16.0); LYMPHOCYTES % 10.4 % (18.0-39.1); MEAN CORPUSCULAR HEMOGLOBIN 31.6 pg (28-32); MONOCYTES # (AUTO) 1.9 (0.2-0.8); MONOCYTES % 9.9 % (4.4-11.3); NEUTROPHILS # (AUTO) 14.8 (2.1-6.9); NEUTROPHILS % 75.9 % (38.7-80.0); PLATELET COUNT 309 x10e3/uL (140-360); RED CELL DISTRIBUTION WIDTH 16.2 % (11.7-14.4)
[2022-04-10 06:38] LABS: ALBUMIN 1.6 g/dL (3.5-5.0); ALBUMIN/GLOBULIN RATIO 0.4 (0.8-2.0); ANION GAP 19.2 mmol/L (8-16); CALCIUM 7.3 mg/dL (8.4-10.2); CREATININE, SERUM 2.3 mg/dL (0.57-1.11); POTASSIUM 5.2 mmol/L (3.5-5.1)
[2022-04-10 07:18] LABS: CREATINE KINASE MB 2.6 ng/mL (0-5.0)
[2022-04-10] MEDS: INSULIN REGULAR, HUMAN 100 UNIT/1 ML SQ SCH ×4 (07:32→21:00)
[2022-04-10] MEDS: FAMOTIDINE 20 MG/2 ML VIAL IV SCH ×2 (10:30→17:32)
[2022-04-10] MEDS: ENOXAPARIN 30 MG/0.3 ML SYR SC SCH (17:00)
[2022-04-10 18:45] LABS: ABG PCO2 33 mmHg (35-45); ABG PH 7.37 (7.35-7.45); ABG PO2 77 mmHg (80-105)
[2022-04-10 18:46] LABS: ABG HCO3 19 mmol/L (22-26); ABG TCO2 20
[2022-04-10] MEDS ORDERED: ACETAMINOPHEN 1000 MG/100 ML IV PRN (23:45)
[2022-04-11] VITALS (68 sets, daily range): BP systolic 73–160; BP diastolic 28–82
[2022-04-11] MEDS: SODIUM BICARBONATE 8.4% 50 ML in SODIUM CHLORIDE 0.45% 1,000 ML IV SCH ×3 (01:49→22:21)
[2022-04-11] MEDS: NOREPINEPHRINE 8 MG/D5W 250 ML 250 ML IV SCH ×2 (06:20→12:27)
[2022-04-11 07:03] LABS: BASOPHILS # (AUTO) 0.1 (0.0-0.1); BASOPHILS % 0.3 % (0.0-1.0); HEMATOCRIT 28.4 % (34.2-44.1); HEMOGLOBIN 8.9 g/dL (12.0-16.0); LYMPHOCYTES # (AUTO) 1.9 (1.0-3.2); LYMPHOCYTES % 6.4 % (18.0-39.1); MEAN CORPUSCULAR HEMOGLOBIN 31.6 pg (28-32); MEAN CORPUSCULAR HGB CONC 31.3 g/dL (31-35); MEAN CORPUSCULAR VOLUME 100.7 fL (81-99); MONOCYTES # (AUTO) 1.7 (0.2-0.8); MONOCYTES % 5.8 % (4.4-11.3); NEUTROPHILS # (AUTO) 25.5 (2.1-6.9); NEUTROPHILS % 85.3 % (38.7-80.0); PLATELET COUNT 249 x10e3/uL (140-360); RED BLOOD COUNT 2.82 x10e6/uL (3.6-5.1); RED CELL DISTRIBUTION WIDTH 16.4 % (11.7-14.4)
[2022-04-11 07:27] LABS: ALBUMIN 1.5 g/dL (3.5-5.0); ALBUMIN/GLOBULIN RATIO 0.3 (0.8-2.0); ANION GAP 19.1 mmol/L (8-16); CALCIUM 7.6 mg/dL (8.4-10.2); CREATININE, SERUM 2.69 mg/dL (0.57-1.11); POTASSIUM 5.1 mmol/L (3.5-5.1)
[2022-04-11 08:08] LABS: LYMPHOCYTES % (MANUAL) 5 % (19-48); MONOCYTES % (MANUAL) 1 % (3.4-9.0); NEUTROPHILS % (MANUAL) 94 % (40-74); NUCLEATED RED BLOOD CELLS 1; PLATELET ESTIMATE ADEQUATE; PLATELET MORPHOLOGY COMMENT NORMAL; RBC MORPHOLOGY COMMENT NORMAL
[2022-04-11] MEDS: INSULIN REGULAR, HUMAN 100 UNIT/1 ML SQ SCH ×4 (08:19→21:00)
[2022-04-11] MEDS: FAMOTIDINE 20 MG/2 ML VIAL IV SCH ×2 (08:19→16:53)
[2022-04-11] MEDS: VASOPRESSIN 60 UNIT in DEXTROSE 5% 50ML 57 ML IV SCH (08:21)
[2022-04-11] MEDS: CEFTRIAXONE 2 GM in SODIUM CHLORIDE 0.9% 100 ML IV SCH (11:39)
[2022-04-11] MEDS ORDERED: HEPARIN SOD (PORCINE) 1000 UNIT/ML SDV ONE (11:56)
[2022-04-11] MEDS ORDERED: SODIUM CHLORIDE 0.9% 1000ML 2,000 ML ONE (11:57)
[2022-04-11] MEDS ORDERED: GENTAMICIN SULFATE 300 MG in SODIUM CHLORIDE 0.9% 100 ML IV ONE (12:00)
[2022-04-11] MEDS ORDERED: MANNITOL 25% 12.5GM/50 ML VIAL IV ONE (12:01)
[2022-04-11] MEDS: Morphine 2mg Syringe 2 MG/ML SYR IV PRN (21:00)
[2022-04-12] VITALS (98 sets, daily range): BP systolic 70–134; BP diastolic 34–98
[2022-04-12] MEDS: Morphine 2mg Syringe 2 MG/ML SYR IV PRN ×4 (00:45→22:57)
[2022-04-12] MEDS: NOREPINEPHRINE 8 MG/D5W 250 ML 250 ML IV SCH ×3 (04:29→20:42)
[2022-04-12 06:51] LABS: BASOPHILS # (AUTO) 0.1 (0.0-0.1); BASOPHILS % 0.4 % (0.0-1.0); EOSINOPHILS # (AUTO) 0.1 (0.0-0.4); EOSINOPHILS % 0.3 % (0.0-6.0); HEMATOCRIT 27.7 % (34.2-44.1); HEMOGLOBIN 9.4 g/dL (12.0-16.0); LYMPHOCYTES # (AUTO) 1.8 (1.0-3.2); LYMPHOCYTES % 8.2 % (18.0-39.1); MEAN CORPUSCULAR HEMOGLOBIN 31.1 pg (28-32); MEAN CORPUSCULAR HGB CONC 33.9 g/dL (31-35); MEAN CORPUSCULAR VOLUME 91.7 fL (81-99); MONOCYTES # (AUTO) 1.5 (0.2-0.8); MONOCYTES % 6.7 % (4.4-11.3); NEUTROPHILS # (AUTO) 18.4 (2.1-6.9); NEUTROPHILS % 82.5 % (38.7-80.0); PLATELET COUNT 261 x10e3/uL (140-360); RED BLOOD COUNT 3.02 x10e6/uL (3.6-5.1); RED CELL DISTRIBUTION WIDTH 15.9 % (11.7-14.4)
[2022-04-12 07:10] LABS: ALBUMIN 1.2 g/dL (3.5-5.0); ALBUMIN/GLOBULIN RATIO 0.3 (0.8-2.0); ANION GAP 20.9 mmol/L (8-16); CALCIUM 7.4 mg/dL (8.4-10.2); CREATININE, SERUM 1.83 mg/dL (0.57-1.11); POTASSIUM 3.9 mmol/L (3.5-5.1)
[2022-04-12] MEDS: INSULIN REGULAR, HUMAN 100 UNIT/1 ML SQ SCH ×4 (07:30→21:00)
[2022-04-12] MEDS: VASOPRESSIN 60 UNIT in DEXTROSE 5% 50ML 57 ML IV SCH (07:44)
[2022-04-12] MEDS: FAMOTIDINE 20 MG/2 ML VIAL IV SCH ×2 (08:11→17:12)
[2022-04-12] MEDS ORDERED: MIDAZOLAM HCL 2 MG/2 ML VIAL ONE (12:01)
[2022-04-12] MEDS ORDERED: FENTANYL CITRATE/PF 100MCG/2 ML INJ ONE (12:01)
[2022-04-12] MEDS: CEFTRIAXONE 2 GM in SODIUM CHLORIDE 0.9% 100 ML IV SCH (13:51)
[2022-04-12] MEDS ORDERED: SODIUM CHLORIDE 0.9% 1000ML 2,000 ML IV PRN (16:30)
[2022-04-12] MEDS ORDERED: HEPARIN SOD (PORCINE) 1000 UNIT/ML SDV IV PRN (16:30)
[2022-04-12] MEDS ORDERED: HALOPERIDOL LACTATE 5 MG/ML VIAL IM ONE (17:45)
[2022-04-13] VITALS (82 sets, daily range): BP systolic 72–148; BP diastolic 37–115
[2022-04-13] MEDS: NOREPINEPHRINE 8 MG/D5W 250 ML 250 ML IV SCH ×2 (03:21→11:03)
[2022-04-13] MEDS: Morphine 2mg Syringe 2 MG/ML SYR IV PRN ×4 (03:21→19:16)
[2022-04-13 07:38] LABS: ALBUMIN 1.3 g/dL (3.5-5.0); ALBUMIN/GLOBULIN RATIO 0.3 (0.8-2.0); CALCIUM 7.8 mg/dL (8.4-10.2); CREATININE, SERUM 2.02 mg/dL (0.57-1.11)
[2022-04-13] MEDS: VASOPRESSIN 60 UNIT in DEXTROSE 5% 50ML 57 ML IV SCH (07:44)
[2022-04-13] MEDS: INSULIN REGULAR, HUMAN 100 UNIT/1 ML SQ SCH ×4 (08:16→19:50)
[2022-04-13] MEDS: FAMOTIDINE 20 MG/2 ML VIAL IV SCH ×2 (08:17→17:13)
[2022-04-13] MEDS ORDERED: Vancomycin IV 1 GM in SODIUM CHLORIDE 0.9% 250ML 250 ML IV SCH (09:00)
[2022-04-13] MEDS: ALBUMIN 25% 25GM 100ML 0.25 GM/ML BTL IV SCH ×2 (11:01→17:14)
[2022-04-13] MEDS: CEFTRIAXONE 2 GM in SODIUM CHLORIDE 0.9% 100 ML IV SCH (12:51)
[2022-04-13] MEDS ORDERED: FLUCONAZOLE 100 MG/NS 50 ML 50 ML IV ONE (13:15)
[2022-04-13 14:10] LABS: BASOPHILS # (AUTO) 0.1 (0.0-0.1); BASOPHILS % 0.5 % (0.0-1.0); EOSINOPHILS # (AUTO) 0.1 (0.0-0.4); EOSINOPHILS % 0.7 % (0.0-6.0); HEMATOCRIT 25.4 % (34.2-44.1); HEMOGLOBIN 8.5 g/dL (12.0-16.0); LYMPHOCYTES # (AUTO) 2.9 (1.0-3.2); LYMPHOCYTES % 17.1 % (18.0-39.1); MEAN CORPUSCULAR HEMOGLOBIN 31.3 pg (28-32); MEAN CORPUSCULAR HGB CONC 33.5 g/dL (31-35); MEAN CORPUSCULAR VOLUME 93.4 fL (81-99); MONOCYTES # (AUTO) 1.3 (0.2-0.8); MONOCYTES % 7.3 % (4.4-11.3); NEUTROPHILS # (AUTO) 12.2 (2.1-6.9); NEUTROPHILS % 71.5 % (38.7-80.0); PLATELET COUNT 220 x10e3/uL (140-360); RED BLOOD COUNT 2.72 x10e6/uL (3.6-5.1); RED CELL DISTRIBUTION WIDTH 16.1 % (11.7-14.4)
[2022-04-13] MEDS: ENOXAPARIN 30 MG/0.3 ML SYR SC SCH (17:14)
[2022-04-14] VITALS (75 sets, daily range): BP systolic 77–164; BP diastolic 40–138
[2022-04-14] MEDS: ALBUMIN 25% 25GM 100ML 0.25 GM/ML BTL IV SCH (00:02)
[2022-04-14] MEDS: Morphine 2mg Syringe 2 MG/ML SYR IV PRN ×5 (00:30→22:03)
[2022-04-14 06:46] LABS: BASOPHILS % 0.4 % (0.0-1.0); EOSINOPHILS # (AUTO) 0.2 (0.0-0.4); EOSINOPHILS % 1.7 % (0.0-6.0); HEMOGLOBIN 7.3 g/dL (12.0-16.0); LYMPHOCYTES # (AUTO) 2.2 (1.0-3.2); LYMPHOCYTES % 20.5 % (18.0-39.1); MEAN CORPUSCULAR HEMOGLOBIN 30.8 pg (28-32); MEAN CORPUSCULAR HGB CONC 33.5 g/dL (31-35); MONOCYTES # (AUTO) 0.9 (0.2-0.8); MONOCYTES % 8.7 % (4.4-11.3); NEUTROPHILS # (AUTO) 7.1 (2.1-6.9); NEUTROPHILS % 66.1 % (38.7-80.0); PLATELET COUNT 179 x10e3/uL (140-360); RED BLOOD COUNT 2.37 x10e6/uL (3.6-5.1)
[2022-04-14 06:51] LABS: HEMATOCRIT 21.8 % (34.2-44.1)
[2022-04-14] MEDS: INSULIN REGULAR, HUMAN 100 UNIT/1 ML SQ SCH ×4 (07:30→20:31)
[2022-04-14 07:37] LABS: ALBUMIN 2.3 g/dL (3.5-5.0); ALBUMIN/GLOBULIN RATIO 0.7 (0.8-2.0); ANION GAP 16.8 mmol/L (8-16); CALCIUM 7.8 mg/dL (8.4-10.2); CREATININE, SERUM 2.39 mg/dL (0.57-1.11); POTASSIUM 3.8 mmol/L (3.5-5.1)
[2022-04-14] MEDS: FAMOTIDINE 20 MG/2 ML VIAL IV SCH ×2 (08:31→17:30)
[2022-04-14] MEDS ORDERED: ZIPRASIDONE 20 MG VIAL IM ONE (11:30)
[2022-04-14] MEDS: CEFTRIAXONE 2 GM in SODIUM CHLORIDE 0.9% 100 ML IV SCH (13:38)
[2022-04-14] MEDS: ENOXAPARIN 30 MG/0.3 ML SYR SC SCH (17:30)
[2022-04-14] MEDS: NOREPINEPHRINE 8 MG/D5W 250 ML 250 ML IV SCH (18:15)
[2022-04-15] VITALS (40 sets, daily range): BP systolic 83–144; BP diastolic 41–75
[2022-04-15] MEDS: Morphine 2mg Syringe 2 MG/ML SYR IV PRN (06:12)
[2022-04-15 06:53] LABS: BASOPHILS % 0.4 % (0.0-1.0); EOSINOPHILS # (AUTO) 0.1 (0.0-0.4); EOSINOPHILS % 1.8 % (0.0-6.0); HEMOGLOBIN 7.8 g/dL (12.0-16.0); LYMPHOCYTES # (AUTO) 1.8 (1.0-3.2); LYMPHOCYTES % 24.2 % (18.0-39.1); MEAN CORPUSCULAR HEMOGLOBIN 30.7 pg (28-32); MEAN CORPUSCULAR HGB CONC 31.2 g/dL (31-35); MEAN CORPUSCULAR VOLUME 98.4 fL (81-99); MONOCYTES # (AUTO) 0.6 (0.2-0.8); MONOCYTES % 8.6 % (4.4-11.3); NEUTROPHILS # (AUTO) 4.6 (2.1-6.9); NEUTROPHILS % 62.9 % (38.7-80.0); PLATELET COUNT 165 x10e3/uL (140-360); RED BLOOD COUNT 2.54 x10e6/uL (3.6-5.1)
[2022-04-15 07:10] LABS: ALBUMIN 1.8 g/dL (3.5-5.0); ALBUMIN/GLOBULIN RATIO 0.6 (0.8-2.0); ANION GAP 15.1 mmol/L (8-16); CALCIUM 7.7 mg/dL (8.4-10.2); CREATININE, SERUM 2.1 mg/dL (0.57-1.11); POTASSIUM 4.1 mmol/L (3.5-5.1)
[2022-04-15] MEDS: INSULIN REGULAR, HUMAN 100 UNIT/1 ML SQ SCH ×4 (07:30→21:00)
[2022-04-15] MEDS: FAMOTIDINE 20 MG/2 ML VIAL IV SCH ×2 (08:21→16:15)
[2022-04-15] MEDS: CEFTRIAXONE 2 GM in SODIUM CHLORIDE 0.9% 100 ML IV SCH (12:24)
[2022-04-15] MEDS: ENOXAPARIN 30 MG/0.3 ML SYR SC SCH (16:15)
[2022-04-16] VITALS (16 sets, daily range): BP systolic 114–168; BP diastolic 54–143
[2022-04-16] MEDS: Morphine 2mg Syringe 2 MG/ML SYR IV PRN ×2 (03:21→23:09)
[2022-04-16 06:33] LABS: BASOPHILS % 0.4 % (0.0-1.0); EOSINOPHILS # (AUTO) 0.1 (0.0-0.4); EOSINOPHILS % 1.4 % (0.0-6.0); HEMOGLOBIN 8.6 g/dL (12.0-16.0); LYMPHOCYTES # (AUTO) 1.6 (1.0-3.2); LYMPHOCYTES % 19.8 % (18.0-39.1); MEAN CORPUSCULAR HEMOGLOBIN 31.2 pg (28-32); MEAN CORPUSCULAR HGB CONC 33.1 g/dL (31-35); MONOCYTES # (AUTO) 0.7 (0.2-0.8); MONOCYTES % 8.9 % (4.4-11.3); NEUTROPHILS # (AUTO) 5.4 (2.1-6.9); NEUTROPHILS % 66.9 % (38.7-80.0); PLATELET COUNT 173 x10e3/uL (140-360); RED BLOOD COUNT 2.76 x10e6/uL (3.6-5.1); RED CELL DISTRIBUTION WIDTH 16.3 % (11.7-14.4)
[2022-04-16 06:36] LABS: MEAN CORPUSCULAR VOLUME 94.2 fL (81-99)
[2022-04-16 06:53] LABS: ALBUMIN 1.6 g/dL (3.5-5.0); ALBUMIN/GLOBULIN RATIO 0.4 (0.8-2.0); ANION GAP 15.1 mmol/L (8-16); CALCIUM 7.8 mg/dL (8.4-10.2); CREATININE, SERUM 1.26 mg/dL (0.57-1.11); POTASSIUM 4.1 mmol/L (3.5-5.1)
[2022-04-16] MEDS: INSULIN REGULAR, HUMAN 100 UNIT/1 ML SQ SCH ×4 (07:30→21:07)
[2022-04-16] MEDS: FAMOTIDINE 20 MG/2 ML VIAL IV SCH ×2 (08:20→16:36)
[2022-04-16] MEDS: CEFTRIAXONE 2 GM in SODIUM CHLORIDE 0.9% 100 ML IV SCH (11:53)
[2022-04-16] MEDS ORDERED: SIMETHICONE 80 MG CHEW PO PRN (13:15)
[2022-04-17] VITALS (21 sets, daily range): BP systolic 114–160; BP diastolic 41–103
[2022-04-17] MEDS: ACETAMINOPHEN 325 MG TAB PO PRN ×3 (00:34→20:16)
[2022-04-17 06:31] LABS: BASOPHILS % 0.5 % (0.0-1.0); EOSINOPHILS # (AUTO) 0.1 (0.0-0.4); EOSINOPHILS % 1.1 % (0.0-6.0); HEMATOCRIT 25.8 % (34.2-44.1); HEMOGLOBIN 8.7 g/dL (12.0-16.0); LYMPHOCYTES # (AUTO) 1.7 (1.0-3.2); LYMPHOCYTES % 20.4 % (18.0-39.1); MEAN CORPUSCULAR HEMOGLOBIN 31.2 pg (28-32); MEAN CORPUSCULAR HGB CONC 33.7 g/dL (31-35); MEAN CORPUSCULAR VOLUME 92.5 fL (81-99); MONOCYTES # (AUTO) 0.8 (0.2-0.8); MONOCYTES % 9.4 % (4.4-11.3); NEUTROPHILS # (AUTO) 5.6 (2.1-6.9); NEUTROPHILS % 66.9 % (38.7-80.0); PLATELET COUNT 209 x10e3/uL (140-360); RED BLOOD COUNT 2.79 x10e6/uL (3.6-5.1); RED CELL DISTRIBUTION WIDTH 16.3 % (11.7-14.4)
[2022-04-17 07:12] LABS: ALBUMIN 1.6 g/dL (3.5-5.0); ALBUMIN/GLOBULIN RATIO 0.4 (0.8-2.0); CALCIUM 7.9 mg/dL (8.4-10.2); CREATININE, SERUM 0.88 mg/dL (0.57-1.11)
[2022-04-17] MEDS: INSULIN REGULAR, HUMAN 100 UNIT/1 ML SQ SCH ×4 (07:31→20:18)
[2022-04-17] MEDS: FAMOTIDINE 20 MG/2 ML VIAL IV SCH ×2 (08:23→16:55)
[2022-04-17] MEDS: CEFTRIAXONE 2 GM in SODIUM CHLORIDE 0.9% 100 ML IV SCH (12:20)
[2022-04-18] VITALS (11 sets, daily range): BP systolic 139–161; BP diastolic 54–110
[2022-04-18] MEDS: Morphine 2mg Syringe 2 MG/ML SYR IV PRN ×3 (00:11→23:27)
[2022-04-18 06:44] LABS: BASOPHILS % 0.2 % (0.0-1.0); EOSINOPHILS # (AUTO) 0.1 (0.0-0.4); EOSINOPHILS % 1.1 % (0.0-6.0); HEMATOCRIT 26.1 % (34.2-44.1); HEMOGLOBIN 8.2 g/dL (12.0-16.0); LYMPHOCYTES # (AUTO) 1.9 (1.0-3.2); LYMPHOCYTES % 21.7 % (18.0-39.1); MEAN CORPUSCULAR HEMOGLOBIN 30.6 pg (28-32); MEAN CORPUSCULAR HGB CONC 31.4 g/dL (31-35); MEAN CORPUSCULAR VOLUME 97.4 fL (81-99); MONOCYTES # (AUTO) 0.8 (0.2-0.8); MONOCYTES % 9.3 % (4.4-11.3); NEUTROPHILS # (AUTO) 5.7 (2.1-6.9); NEUTROPHILS % 66.3 % (38.7-80.0); PLATELET COUNT 228 x10e3/uL (140-360); RED BLOOD COUNT 2.68 x10e6/uL (3.6-5.1); RED CELL DISTRIBUTION WIDTH 16.4 % (11.7-14.4)
[2022-04-18 07:21] LABS: ALBUMIN 1.5 g/dL (3.5-5.0); ALBUMIN/GLOBULIN RATIO 0.4 (0.8-2.0); ANION GAP 11.8 mmol/L (8-16); CALCIUM 7.9 mg/dL (8.4-10.2); CREATININE, SERUM 0.76 mg/dL (0.57-1.11); POTASSIUM 3.8 mmol/L (3.5-5.1)
[2022-04-18] MEDS: INSULIN REGULAR, HUMAN 100 UNIT/1 ML SQ SCH ×4 (07:30→20:15)
[2022-04-18] MEDS: FAMOTIDINE 20 MG/2 ML VIAL IV SCH ×2 (08:14→16:17)
[2022-04-18] MEDS: ACETAMINOPHEN 325 MG TAB PO PRN (08:26)
[2022-04-18] MEDS: CEFTRIAXONE 2 GM in SODIUM CHLORIDE 0.9% 100 ML IV SCH (12:12)
[2022-04-18] MEDS ORDERED: HYDRALAZINE HCL 20 MG/ML VIAL IV PRN (14:15)
[2022-04-18] MEDS: CARVEDILOL 3.125 MG TAB PO SCH (16:18)
[2022-04-19 04:00] VITALS: BP 132/50
[2022-04-19 06:44] LABS: BASOPHILS % 0.4 % (0.0-1.0); EOSINOPHILS # (AUTO) 0.1 (0.0-0.4); EOSINOPHILS % 0.9 % (0.0-6.0); HEMOGLOBIN 7.9 g/dL (12.0-16.0); LYMPHOCYTES # (AUTO) 1.8 (1.0-3.2); LYMPHOCYTES % 19.9 % (18.0-39.1); MEAN CORPUSCULAR HEMOGLOBIN 30.9 pg (28-32); MEAN CORPUSCULAR HGB CONC 31.6 g/dL (31-35); MEAN CORPUSCULAR VOLUME 97.7 fL (81-99); MONOCYTES % 11.1 % (4.4-11.3); NEUTROPHILS # (AUTO) 6.1 (2.1-6.9); NEUTROPHILS % 66.3 % (38.7-80.0); PLATELET COUNT 268 x10e3/uL (140-360); RED BLOOD COUNT 2.56 x10e6/uL (3.6-5.1); RED CELL DISTRIBUTION WIDTH 16.3 % (11.7-14.4)
[2022-04-19 07:12] LABS: ALBUMIN 1.5 g/dL (3.5-5.0); ALBUMIN/GLOBULIN RATIO 0.4 (0.8-2.0); ANION GAP 12.8 mmol/L (8-16); CALCIUM 7.6 mg/dL (8.4-10.2); CREATININE, SERUM 0.72 mg/dL (0.57-1.11); POTASSIUM 3.8 mmol/L (3.5-5.1)
[2022-04-19] MEDS: INSULIN REGULAR, HUMAN 100 UNIT/1 ML SQ SCH ×4 (07:30→21:00)
[2022-04-19] MEDS: CARVEDILOL 3.125 MG TAB PO SCH ×2 (08:11→15:58)
[2022-04-19] MEDS: FAMOTIDINE 20 MG/2 ML VIAL IV SCH ×2 (08:11→15:57)
[2022-04-19 09:11] VITALS: BP 138/56
[2022-04-19 09:20] VITALS: BP 145/72
[2022-04-19] MEDS: ACETAMINOPHEN 325 MG TAB PO PRN ×2 (11:14→22:17)
[2022-04-19] MEDS: CEFTRIAXONE 2 GM in SODIUM CHLORIDE 0.9% 100 ML IV SCH (11:16)
[2022-04-19] MEDS ORDERED: SODIUM CHLORIDE 0.9% 250ML 250 ML ONE (11:22)
[2022-04-19 13:29] VITALS: BP 141/54
[2022-04-19] MEDS: Morphine 2mg Syringe 2 MG/ML SYR IV PRN (16:01)
[2022-04-19 17:22] VITALS: BP 153/67
[2022-04-19 20:00] VITALS: BP 135/45
[2022-04-20] VITALS (8 sets, daily range): BP systolic 127–161; BP diastolic 52–74
[2022-04-20] MEDS: INSULIN REGULAR, HUMAN 100 UNIT/1 ML SQ SCH (07:30)
[2022-04-20] MEDS: FAMOTIDINE 20 MG/2 ML VIAL IV SCH (09:31)
[2022-04-20] MEDS: CARVEDILOL 3.125 MG TAB PO SCH ×2 (09:31→17:13)
[2022-04-20] MEDS: INSULIN LISPRO 100 UNIT/1 ML 3ML VIAL SQ SCH ×2 (16:30→20:09)
[2022-04-20] MEDS: CEFTRIAXONE 2 GM in SODIUM CHLORIDE 0.9% 100 ML IV SCH (17:12)
[2022-04-20] MEDS: ENOXAPARIN SOD INJ 40 MG/0.4 ML SYR SC SCH (17:13)
[2022-04-20] MEDS: ACETAMINOPHEN 325 MG TAB PO PRN (17:20)
[2022-04-21 04:00] VITALS: BP 153/62
[2022-04-21 07:29] VITALS: BP 148/68
[2022-04-21] MEDS: INSULIN LISPRO 100 UNIT/1 ML 3ML VIAL SQ SCH ×4 (07:30→21:00)
[2022-04-21 07:47] VITALS: BP 148/68
[2022-04-21] MEDS: CARVEDILOL 3.125 MG TAB PO SCH ×2 (08:37→16:23)
[2022-04-21] MEDS: ACETAMINOPHEN 325 MG TAB PO PRN ×2 (08:38→22:27)
[2022-04-21 11:03] VITALS: BP 140/52
[2022-04-21 15:24] VITALS: BP 127/68
[2022-04-21] MEDS: ENOXAPARIN SOD INJ 40 MG/0.4 ML SYR SC SCH (16:24)
[2022-04-21 20:00] VITALS: BP 149/52
[2022-04-21] MEDS: CEFTRIAXONE 2 GM in SODIUM CHLORIDE 0.9% 100 ML IV SCH (22:00)
[2022-04-22] VITALS (8 sets, daily range): BP systolic 146–165; BP diastolic 41–72
[2022-04-22 06:55] LABS: BASOPHILS # (AUTO) 0.1 (0.0-0.1); BASOPHILS % 0.6 % (0.0-1.0); EOSINOPHILS % 0.4 % (0.0-6.0); HEMOGLOBIN 8.5 g/dL (12.0-16.0); LYMPHOCYTES # (AUTO) 1.7 (1.0-3.2); LYMPHOCYTES % 21.6 % (18.0-39.1); MEAN CORPUSCULAR HEMOGLOBIN 31.4 pg (28-32); MEAN CORPUSCULAR HGB CONC 31.5 g/dL (31-35); MEAN CORPUSCULAR VOLUME 99.6 fL (81-99); MONOCYTES # (AUTO) 0.7 (0.2-0.8); MONOCYTES % 8.6 % (4.4-11.3); NEUTROPHILS # (AUTO) 5.4 (2.1-6.9); NEUTROPHILS % 68.2 % (38.7-80.0); PLATELET COUNT 325 x10e3/uL (140-360); RED BLOOD COUNT 2.71 x10e6/uL (3.6-5.1); RED CELL DISTRIBUTION WIDTH 16.3 % (11.7-14.4)
[2022-04-22 07:18] LABS: ALBUMIN 1.6 g/dL (3.5-5.0); ALBUMIN/GLOBULIN RATIO 0.4 (0.8-2.0); ANION GAP 13.7 mmol/L (8-16); CALCIUM 7.7 mg/dL (8.4-10.2); CREATININE, SERUM 0.72 mg/dL (0.57-1.11); POTASSIUM 3.7 mmol/L (3.5-5.1)
[2022-04-22] MEDS: INSULIN LISPRO 100 UNIT/1 ML 3ML VIAL SQ SCH ×4 (07:30→20:12)
[2022-04-22] MEDS: ACETAMINOPHEN 325 MG TAB PO PRN (07:31)
[2022-04-22] MEDS: CARVEDILOL 3.125 MG TAB PO SCH ×2 (08:55→16:24)
[2022-04-22] MEDS: ENOXAPARIN SOD INJ 40 MG/0.4 ML SYR SC SCH (17:00)
[2022-04-22] MEDS: CEFTRIAXONE 2 GM in SODIUM CHLORIDE 0.9% 100 ML IV SCH (22:16)
[2022-04-23] VITALS (8 sets, daily range): BP systolic 134–189; BP diastolic 54–75
[2022-04-23 06:45] LABS: ALBUMIN 1.6 g/dL (3.5-5.0)
[2022-04-23] MEDS: INSULIN LISPRO 100 UNIT/1 ML 3ML VIAL SQ SCH ×4 (07:30→21:00)
[2022-04-23] MEDS: CARVEDILOL 3.125 MG TAB PO SCH ×2 (09:00→16:52)
[2022-04-23] MEDS: ENOXAPARIN SOD INJ 40 MG/0.4 ML SYR SC SCH (16:53)
[2022-04-23] MEDS ORDERED: FUROSEMIDE 20 MG TAB PO ONE (17:30)
[2022-04-23] MEDS ORDERED: POTASSIUM CHLORIDE 20 MEQ TAB CR PO ONE (17:30)
[2022-04-23] MEDS: CEFTRIAXONE 2 GM in SODIUM CHLORIDE 0.9% 100 ML IV SCH (21:36)
[2022-04-24] MEDS: ACETAMINOPHEN 325 MG TAB PO PRN (00:29)
[2022-04-24 00:38] VITALS: BP 145/61
[2022-04-24 05:49] VITALS: BP 132/43
[2022-04-24 06:15] LABS: ANION GAP 14.8 mmol/L (8-16); CALCIUM 7.6 mg/dL (8.4-10.2); CREATININE, SERUM 0.68 mg/dL (0.57-1.11); POTASSIUM 3.8 mmol/L (3.5-5.1)
[2022-04-24] MEDS: INSULIN LISPRO 100 UNIT/1 ML 3ML VIAL SQ SCH ×2 (07:30→11:30)
[2022-04-24 08:18] VITALS: BP 142/71
[2022-04-24 08:30] VITALS: BP 142/71
[2022-04-24] MEDS ORDERED: FUROSEMIDE 20 MG TAB PO SCH (09:00)
[2022-04-24] MEDS: CARVEDILOL 3.125 MG TAB PO SCH (09:00)
[2022-04-24] MEDS ORDERED: POTASSIUM CHLORIDE 20 MEQ TAB CR PO SCH (09:00)
[2022-04-24 11:00] LABS: ALBUMIN 1.6 g/dL (3.5-5.0)
[2022-04-24 12:08] VITALS: BP 148/57
[2022-04-24] MEDS ORDERED: COREG3.125 MG PO (12:52)
[2022-04-24] MEDS ORDERED: FUROSEMIDE20 MG PO (12:52)
== END 2022-04-24 13:58 | disposition home health service (06) | DRG 871 ==
LOC: ER 23:15 → ERHOLD 04-09 04:27 → ICU 04-09 12:31 → MED/SURG3 04-19 00:23
PROVIDERS: ADMIT Internal Medicine; ATTEND Internal Medicine
PROC: 3E03329 Introduction of Other Anti-infective into Peripheral Vein, Percutaneous Approach (ICD-10-PCS; 2022-04-09)
PROC: 0F923ZZ Drainage of Left Lobe Liver, Percutaneous Approach (ICD-10-PCS; 2022-04-12)
PROC: 3E033XZ Introduction of Vasopressor into Peripheral Vein, Percutaneous Approach (ICD-10-PCS; 2022-04-12)
PROC: 5A1D70Z Performance of Urinary Filtration, Intermittent, Less than 6 Hours Per Day (ICD-10-PCS; 2022-04-12)
PROC: 02HV33Z Insertion of Infusion Device into Superior Vena Cava, Percutaneous Approach (ICD-10-PCS; principal; 2022-04-14)
DX: A41.50 Gram-negative sepsis, unspecified (principal); G93.41 Metabolic encephalopathy; I21.A1 Myocardial infarction type 2; R65.21 Severe sepsis with septic shock; K75.0 Abscess of liver; N17.9 Acute kidney failure, unspecified; E87.20 Acidosis, unspecified; C22.1 Intrahepatic bile duct carcinoma; B37.49 Other urogenital candidiasis; I10 Essential (primary) hypertension; A41.9 Sepsis, unspecified organism; E11.9 Type 2 diabetes mellitus without complications; Z86.73 Personal history of transient ischemic attack (TIA), and cerebral infarction without residual deficits; Z85.05 Personal history of malignant neoplasm of liver; D64.9 Anemia, unspecified; D50.0 Iron deficiency anemia secondary to blood loss (chronic); E87.6 Hypokalemia; E87.5 Hyperkalemia; A41.59 Other Gram-negative sepsis; E11.22 Type 2 diabetes mellitus with diabetic chronic kidney disease; I12.9 Hypertensive chronic kidney disease with stage 1 through stage 4 chronic kidney disease, or unspecified chronic kidney disease; N18.9 Chronic kidney disease, unspecified; L89.156 Pressure-induced deep tissue damage of sacral region
CPT/HCPCS: 36415; 36569; 49405; 51700; 70450; 71045; 74176; 74470; 77012; 80048; 80053; 80076; 80202; 81001; 82140; 82550; 82553; 82805; 82948; 83605; 83690; 84484; 85025; 85610; 85730; 86705; 86706; 87040; 87070; 87071; 87075; 87086; 87186; 87205; 87340; 93005; 93306; 94799; 99251; 99252; 99285; C1729; J0360; J0696; J1450; J1580; J1630; J1644; J1650; J1817; J2150; J2185; J2250; J2270; J2405; J2543; J3010; J3370; J3486; J7030; J7040; J7050; P9047

== ENCOUNTER 2022-04-29 15:24 | Inpatient (IN) | payer MEDICARE ==
[~2022-04-29] VITALS: Ht 149.9 cm; Wt 82.6 kg
[~2022-04-29 15:24] MED LIST changes: +FUROSEMIDE20 MG PO
[2022-04-29 16:21] LABS: BASOPHILS % 0.3 % (0.0-1.0); EOSINOPHILS % 0.2 % (0.0-6.0); HEMATOCRIT 26.8 % (34.2-44.1); HEMOGLOBIN 8.4 g/dL (12.0-16.0); LYMPHOCYTES # (AUTO) 1.2 (1.0-3.2); LYMPHOCYTES % 11.2 % (18.0-39.1); MEAN CORPUSCULAR HEMOGLOBIN 30.9 pg (28-32); MEAN CORPUSCULAR HGB CONC 31.3 g/dL (31-35); MEAN CORPUSCULAR VOLUME 98.5 fL (81-99); MONOCYTES # (AUTO) 0.6 (0.2-0.8); MONOCYTES % 5.7 % (4.4-11.3); NEUTROPHILS # (AUTO) 8.7 (2.1-6.9); NEUTROPHILS % 81.7 % (38.7-80.0); PLATELET COUNT 352 x10e3/uL (140-360); RED BLOOD COUNT 2.72 x10e6/uL (3.6-5.1); RED CELL DISTRIBUTION WIDTH 15.9 % (11.7-14.4)
[2022-04-29 16:25] LABS: CLARITY,URINE SL CLOUDY (CLEAR); COLOR,URINE YELLOW (YELLOW); KETONES,URINE NEGATIVE (NEGATIVE); LEUKOCYTE ESTERASE ,URINE NEGATIVE (NEGATIVE); NITRITE,URINE NEGATIVE (NEGATIVE); PROTEIN,URINE DIPSTICK NEGATIVE (NEGATIVE); URINE UROBILINOGEN 0.2 mg/dL (0.2 - 1)
[2022-04-29 16:36] LABS: ALBUMIN 2.2 g/dL (3.5-5.0); ALBUMIN/GLOBULIN RATIO 0.6 (0.8-2.0); ANION GAP 17.1 mmol/L (8-16); CREATININE, SERUM 1.17 mg/dL (0.57-1.11); POTASSIUM 3.1 mmol/L (3.5-5.1)
[2022-04-29 16:38] LABS: BACTERIA,URINE FEW /HPF; EPITHELIAL CELLS,URINE FEW /LPF; WBC,URINE (MAN) 0-5 /HPF (0-5)
[2022-04-29] MEDS ORDERED: LACTATED RINGER'S 1,000 ML INJ ONE (17:00)
[2022-04-29] MEDS ORDERED: SODIUM CHLORIDE 0.9% 1000ML 1,000 ML IV SCH (17:00)
[2022-04-29 18:23] VITALS: BP 101/58
[2022-04-29] MEDS ORDERED: DEXTROSE 50% SYRINGE 50 ML IV PRN (19:00)
[2022-04-29] MEDS ORDERED: LASIX40 MG PO (20:02)
[2022-04-29] MEDS ORDERED: OMEPRAZOLE40 MG PO (20:02)
[2022-04-29] MEDS ORDERED: METFORMIN HCL500 MG PO (20:02)
[2022-04-29] MEDS ORDERED: ONDANSETRON ODT4 MG PO (20:02)
[2022-04-29] MEDS ORDERED: URSODIOL300 MG PO (20:02)
[2022-04-29] MEDS ORDERED: CARVEDILOL3.125 MG PO (20:02)
[2022-04-29] MEDS ORDERED: NEURONTIN400 MG PO (20:02)
[2022-04-29] MEDS ORDERED: ASPIRIN EC81 MG PO (20:02)
[2022-04-29] MEDS: KCL 20MEQ/.9 SOD CHL 1,000 ML IV SCH (22:45)
[2022-04-29] MEDS: INSULIN LISPRO 100 UNIT/1 ML 3ML VIAL SQ SCH (22:51)
[2022-04-30] VITALS (7 sets, daily range): BP systolic 98–132; BP diastolic 33–80
[2022-04-30] MEDS: KCL 20MEQ/.9 SOD CHL 1,000 ML IV SCH ×2 (05:22→16:43)
[2022-04-30 05:38] LABS: BASOPHILS % 0.4 % (0.0-1.0); EOSINOPHILS # (AUTO) 0.1 (0.0-0.4); HEMATOCRIT 24.9 % (34.2-44.1); HEMOGLOBIN 7.6 g/dL (12.0-16.0); LYMPHOCYTES # (AUTO) 2.2 (1.0-3.2); LYMPHOCYTES % 19.9 % (18.0-39.1); MEAN CORPUSCULAR HEMOGLOBIN 30.6 pg (28-32); MEAN CORPUSCULAR HGB CONC 30.5 g/dL (31-35); MEAN CORPUSCULAR VOLUME 100.4 fL (81-99); MONOCYTES # (AUTO) 1.1 (0.2-0.8); MONOCYTES % 10.4 % (4.4-11.3); NEUTROPHILS # (AUTO) 7.4 (2.1-6.9); NEUTROPHILS % 67.5 % (38.7-80.0); PLATELET COUNT 263 x10e3/uL (140-360); RED BLOOD COUNT 2.48 x10e6/uL (3.6-5.1); RED CELL DISTRIBUTION WIDTH 16.4 % (11.7-14.4)
[2022-04-30 06:04] LABS: CALCIUM 7.3 mg/dL (8.4-10.2); CREATININE, SERUM 1.09 mg/dL (0.57-1.11)
[2022-04-30 06:24] LABS: PHOSPHORUS 3.1 MG/DL (2.3-4.7)
[2022-04-30 06:30] LABS: MAGNESIUM 1.1 MG/DL (1.3-2.1)
[2022-04-30] MEDS ORDERED: MAGNESIUM SULFATE 2GM/50ML 50 ML IV ONE ×2 (06:45→09:00)
[2022-04-30 07:28] LABS: EOSINOPHILS % (MANUAL) 1 % (0-7); LYMPHOCYTES % (MANUAL) 25 % (19-48); MONOCYTES % (MANUAL) 3 % (3.4-9.0); NEUTROPHILS % (MANUAL) 70 % (40-74)
[2022-04-30 07:29] LABS: HYPOCHROMASIA SLIGHT; PLATELET ESTIMATE ADEQUATE; PLATELET MORPHOLOGY COMMENT NORMAL; RBC MORPHOLOGY COMMENT ABNORMAL
[2022-04-30] MEDS: INSULIN LISPRO 100 UNIT/1 ML 3ML VIAL SQ SCH ×4 (07:30→21:00)
[2022-04-30] MEDS: CARVEDILOL 3.125 MG TAB PO SCH ×2 (07:30→16:44)
[2022-04-30] MEDS: ACETAMINOPHEN 325 MG TAB PO PRN ×2 (11:15→21:54)
[2022-04-30] MEDS: POTASSIUM CHLORIDE 10MEQ EA PO SCH ×2 (11:16→12:00)
[2022-04-30] MEDS: MIDODRINE 2.5 MG TAB PO SCH ×3 (11:16→16:43)
[2022-04-30] MEDS ORDERED: POTASSIUM CHLORIDE 10MEQ EA PO ONE (14:00)
[2022-04-30 16:30] LABS: MAGNESIUM 2.1 MG/DL (1.3-2.1); POTASSIUM 3.8 mmol/L (3.5-5.1)
[2022-05-01] VITALS (8 sets, daily range): BP systolic 113–144; BP diastolic 40–54
[2022-05-01] MEDS: KCL 20MEQ/.9 SOD CHL 1,000 ML IV SCH ×2 (01:28→09:04)
[2022-05-01] MEDS: ACETAMINOPHEN 325 MG TAB PO PRN (05:41)
[2022-05-01 06:19] LABS: ANION GAP 12.7 mmol/L (8-16); CALCIUM 7.7 mg/dL (8.4-10.2); CREATININE, SERUM 0.93 mg/dL (0.57-1.11); POTASSIUM 4.7 mmol/L (3.5-5.1)
[2022-05-01 06:20] LABS: MAGNESIUM 1.9 MG/DL (1.3-2.1); PHOSPHORUS 2.7 MG/DL (2.3-4.7)
[2022-05-01] MEDS: MIDODRINE 2.5 MG TAB PO SCH ×3 (08:54→16:20)
[2022-05-01] MEDS: CARVEDILOL 3.125 MG TAB PO SCH ×2 (08:56→16:02)
[2022-05-01] MEDS: INSULIN LISPRO 100 UNIT/1 ML 3ML VIAL SQ SCH ×4 (09:00→21:00)
[2022-05-01] MEDS ORDERED: MAGNESIUM HYDROXIDE 30 ML UDC PO PRN (09:15)
[2022-05-01] MEDS ORDERED: BISACODYL 10 MG SUPP PR PRN (09:15)
[2022-05-01] MEDS ORDERED: MAGNESIUM HYDROXIDE 30 ML UDC PO NR (09:15)
[2022-05-01] MEDS ORDERED: BISACODYL 5 MG TAB EC PO ONE ×2 (09:30→13:00)
[2022-05-01] MEDS ORDERED: BISACODYL 10 MG SUPP PR ONE ×2 (09:30→13:00)
[2022-05-01] MEDS: BALSAM PERU/CASTOR OIL 60 GM OINT...G. TP SCH (12:22)
[2022-05-01] MEDS: PHENAZOPYRIDINE HCL 100 MG TAB PO SCH ×2 (12:22→16:02)
[2022-05-01] MEDS: SENNA-S TABLET PO SCH ×2 (12:22→16:20)
[2022-05-01] MEDS: COLLAGENASE 5 GM TUBE TP SCH (12:23)
[2022-05-01] MEDS: FLUCONAZOLE 200 MG/100 ML 100 ML IV SCH (12:29)
[2022-05-02] VITALS (9 sets, daily range): BP systolic 130–159; BP diastolic 44–65
[2022-05-02] MEDS: HYDROCODONE/APAP 7.5MG-325MG 1 EA TAB PO PRN (00:39)
[2022-05-02 05:02] LABS: BASOPHILS % 0.5 % (0.0-1.0); EOSINOPHILS # (AUTO) 0.1 (0.0-0.4); EOSINOPHILS % 1.9 % (0.0-6.0); HEMATOCRIT 27.2 % (34.2-44.1); LYMPHOCYTES % 48.5 % (18.0-39.1); MEAN CORPUSCULAR HEMOGLOBIN 30.1 pg (28-32); MEAN CORPUSCULAR HGB CONC 29.4 g/dL (31-35); MEAN CORPUSCULAR VOLUME 102.3 fL (81-99); MONOCYTES # (AUTO) 0.6 (0.2-0.8); NEUTROPHILS # (AUTO) 2.4 (2.1-6.9); NEUTROPHILS % 38.8 % (38.7-80.0); PLATELET COUNT 345 x10e3/uL (140-360); RED BLOOD COUNT 2.66 x10e6/uL (3.6-5.1); RED CELL DISTRIBUTION WIDTH 16.4 % (11.7-14.4)
[2022-05-02] MEDS: INSULIN LISPRO 100 UNIT/1 ML 3ML VIAL SQ SCH ×4 (07:30→21:22)
[2022-05-02] MEDS: PHENAZOPYRIDINE HCL 100 MG TAB PO SCH ×2 (07:59→17:36)
[2022-05-02] MEDS: SENNA-S TABLET PO SCH ×2 (07:59→17:36)
[2022-05-02] MEDS ORDERED: BISACODYL 5 MG TAB EC PO PRN (08:00)
[2022-05-02] MEDS: MIDODRINE 2.5 MG TAB PO SCH ×3 (08:00→16:00)
[2022-05-02] MEDS: CARVEDILOL 3.125 MG TAB PO SCH ×2 (08:01→17:36)
[2022-05-02] MEDS: COLLAGENASE 5 GM TUBE TP SCH (08:05)
[2022-05-02] MEDS: BALSAM PERU/CASTOR OIL 60 GM OINT...G. TP SCH (08:05)
[2022-05-02] MEDS ORDERED: SODIUM CHLORIDE 0.9% 250ML 250 ML ONE (08:35)
[2022-05-02] MEDS: FLUCONAZOLE 200 MG/100 ML 100 ML IV SCH (08:44)
[2022-05-03] VITALS (8 sets, daily range): BP systolic 114–155; BP diastolic 41–59
[2022-05-03 06:14] LABS: ALBUMIN 1.6 g/dL (3.5-5.0); ALBUMIN/GLOBULIN RATIO 0.4 (0.8-2.0); ANION GAP 12.7 mmol/L (8-16); CALCIUM 8.4 mg/dL (8.4-10.2); CREATININE, SERUM 0.76 mg/dL (0.57-1.11); POTASSIUM 4.7 mmol/L (3.5-5.1)
[2022-05-03] MEDS: INSULIN LISPRO 100 UNIT/1 ML 3ML VIAL SQ SCH ×4 (07:30→20:37)
[2022-05-03] MEDS: MIDODRINE 2.5 MG TAB PO SCH ×3 (08:52→16:00)
[2022-05-03] MEDS: PHENAZOPYRIDINE HCL 100 MG TAB PO SCH ×2 (08:52→16:52)
[2022-05-03] MEDS: SENNA-S TABLET PO SCH ×2 (08:52→16:52)
[2022-05-03] MEDS: HYDROCODONE/APAP 7.5MG-325MG 1 EA TAB PO PRN ×2 (08:53→17:01)
[2022-05-03] MEDS: CARVEDILOL 3.125 MG TAB PO SCH ×2 (08:53→16:53)
[2022-05-03] MEDS: BALSAM PERU/CASTOR OIL 60 GM OINT...G. TP SCH (09:00)
[2022-05-03] MEDS: COLLAGENASE 5 GM TUBE TP SCH (09:00)
[2022-05-03] MEDS: FLUCONAZOLE 200 MG/100 ML 100 ML IV SCH (11:15)
[2022-05-04] VITALS: BP 140/62
[2022-05-04 04:00] VITALS: BP 112/68
[2022-05-04] MEDS: INSULIN LISPRO 100 UNIT/1 ML 3ML VIAL SQ SCH (07:30)
[2022-05-04 08:02] VITALS: BP 137/61
[2022-05-04] MEDS: PHENAZOPYRIDINE HCL 100 MG TAB PO SCH (08:54)
[2022-05-04] MEDS: MIDODRINE 2.5 MG TAB PO SCH ×2 (08:54→12:00)
[2022-05-04] MEDS: HYDROCODONE/APAP 7.5MG-325MG 1 EA TAB PO PRN (08:54)
[2022-05-04] MEDS: SENNA-S TABLET PO SCH (08:54)
[2022-05-04] MEDS: CARVEDILOL 3.125 MG TAB PO SCH (08:54)
[2022-05-04] MEDS: BALSAM PERU/CASTOR OIL 60 GM OINT...G. TP SCH (08:55)
[2022-05-04] MEDS: FLUCONAZOLE 200 MG/100 ML 100 ML IV SCH (08:55)
[2022-05-04] MEDS: COLLAGENASE 5 GM TUBE TP SCH (09:00)
[2022-05-04 12:02] VITALS: BP 136/49
[2022-05-04 15:38] VITALS: BP 98/84
[2022-05-04] MEDS ORDERED: GABAPENTIN 300 MG CAP PO SCH (21:00)
== END 2022-05-04 16:07 | DRG 445 ==
LOC: ER 15:29 → ERHOLD 16:55 → MED/SURG2 18:13 → OBSVTOIN 05-01 09:11
PROVIDERS: ADMIT Internal Medicine; ATTEND Internal Medicine
DX: K83.09 Other cholangitis (principal); C22.1 Intrahepatic bile duct carcinoma; N17.9 Acute kidney failure, unspecified; E87.1 Hypo-osmolality and hyponatremia; E83.42 Hypomagnesemia; E86.0 Dehydration; E87.6 Hypokalemia; R53.81 Other malaise; R53.1 Weakness; I95.9 Hypotension, unspecified; D63.8 Anemia in other chronic diseases classified elsewhere; I12.9 Hypertensive chronic kidney disease with stage 1 through stage 4 chronic kidney disease, or unspecified chronic kidney disease; R30.0 Dysuria; K59.00 Constipation, unspecified; B37.31 Acute candidiasis of vulva and vagina; E11.22 Type 2 diabetes mellitus with diabetic chronic kidney disease; N18.9 Chronic kidney disease, unspecified; Z86.73 Personal history of transient ischemic attack (TIA), and cerebral infarction without residual deficits; Z90.49 Acquired absence of other specified parts of digestive tract; Z98.890 Other specified postprocedural states; Z96.89 Presence of other specified functional implants; Z59.6 Low income; Z79.82 Long term (current) use of aspirin; Z79.84 Long term (current) use of oral hypoglycemic drugs; Z79.899 Other long term (current) drug therapy
CPT/HCPCS: 36415; 71045; 74018; 80048; 80053; 81001; 82948; 83735; 83880; 84100; 84132; 84484; 85025; 93005; 94799; 96372; 99252; 99284; G0378; J0696; J1450; J3475; J7050; J7121

== ENCOUNTER 2022-06-03 11:24 | Emergency (ER) | payer MEDICARE ==
[~2022-06-03] VITALS: Ht 271.8 cm; Wt 82.6 kg
[~2022-06-03 11:24] MED LIST changes: +ASPIRIN EC81 MG PO; +LASIX40 MG PO; +NEURONTIN400 MG PO; +ONDANSETRON ODT4 MG PO; +URSODIOL300 MG PO
[2022-06-03 12:11] LABS: BASOPHILS % 0.2 % (0.0-1.0); EOSINOPHILS % 0.5 % (0.0-6.0); HEMATOCRIT 27.6 % (34.2-44.1); HEMOGLOBIN 8.3 g/dL (12.0-16.0); LYMPHOCYTES % 34.6 % (18.0-39.1); MEAN CORPUSCULAR HEMOGLOBIN 28.8 pg (28-32); MEAN CORPUSCULAR HGB CONC 30.1 g/dL (31-35); MEAN CORPUSCULAR VOLUME 95.8 fL (81-99); MONOCYTES # (AUTO) 0.5 (0.2-0.8); MONOCYTES % 5.2 % (4.4-11.3); NEUTROPHILS # (AUTO) 5.1 (2.1-6.9); NEUTROPHILS % 59.2 % (38.7-80.0); PLATELET COUNT 419 x10e3/uL (140-360); RED BLOOD COUNT 2.88 x10e6/uL (3.6-5.1); RED CELL DISTRIBUTION WIDTH 17.5 % (11.7-14.4)
[2022-06-03 14:30] LABS: ALBUMIN/GLOBULIN RATIO 0.4 (0.8-2.0); ANION GAP 12.4 mmol/L (8-16); CALCIUM 8.5 mg/dL (8.4-10.2); CREATININE, SERUM 0.84 mg/dL (0.57-1.11); POTASSIUM 4.4 mmol/L (3.5-5.1)
== END 2022-06-03 16:10 ==
LOC: ER 11:32
DX: T85.520A Displacement of bile duct prosthesis, initial encounter (principal); I12.9 Hypertensive chronic kidney disease with stage 1 through stage 4 chronic kidney disease, or unspecified chronic kidney disease; E11.22 Type 2 diabetes mellitus with diabetic chronic kidney disease; E11.65 Type 2 diabetes mellitus with hyperglycemia; N18.9 Chronic kidney disease, unspecified; Z85.05 Personal history of malignant neoplasm of liver; Z86.73 Personal history of transient ischemic attack (TIA), and cerebral infarction without residual deficits
CPT/HCPCS: 36415; 74176; 80053; 85025; 99284

== ENCOUNTER 2022-06-18 10:50 | Inpatient (IN) | payer MEDICARE ==
[~2022-06-18] VITALS: Ht 271.8 cm; Wt 82.6 kg
[2022-06-18] MEDS ORDERED: CEFEPIME 2 GM in SODIUM CHLORIDE 0.9% 100 ML IV ONE (11:30)
[2022-06-18 11:49] LABS: BASOPHILS % 0.2 % (0.0-1.0); EOSINOPHILS % 0.2 % (0.0-6.0); HEMATOCRIT 25.8 % (34.2-44.1); HEMOGLOBIN 7.9 g/dL (12.0-16.0); LYMPHOCYTES # (AUTO) 2.6 (1.0-3.2); LYMPHOCYTES % 26.2 % (18.0-39.1); MEAN CORPUSCULAR HEMOGLOBIN 27.6 pg (28-32); MEAN CORPUSCULAR HGB CONC 30.6 g/dL (31-35); MEAN CORPUSCULAR VOLUME 90.2 fL (81-99); MONOCYTES # (AUTO) 0.6 (0.2-0.8); MONOCYTES % 6.3 % (4.4-11.3); NEUTROPHILS # (AUTO) 6.7 (2.1-6.9); NEUTROPHILS % 66.5 % (38.7-80.0); PLATELET COUNT 330 x10e3/uL (140-360); RED BLOOD COUNT 2.86 x10e6/uL (3.6-5.1); RED CELL DISTRIBUTION WIDTH 18.3 % (11.7-14.4)
[2022-06-18] MEDS ORDERED: Vancomycin IV 1 GM in SODIUM CHLORIDE 0.9% 250ML 250 ML IV ONE (12:00)
[2022-06-18 12:09] LABS: INR 1.12; PROTHROMBIN TIME 14.6 seconds (11.9-14.5)
[2022-06-18 12:10] LABS: PARTIAL THROMBOPLASTIN TIME 30.9 seconds (23.8-35.5)
[2022-06-18 12:31] LABS: ALBUMIN 1.9 g/dL (3.5-5.0); ALBUMIN/GLOBULIN RATIO 0.4 (0.8-2.0); ANION GAP 12.4 mmol/L (8-16); CALCIUM 8.2 mg/dL (8.4-10.2); CREATININE, SERUM 0.9 mg/dL (0.57-1.11); POTASSIUM 4.4 mmol/L (3.5-5.1)
[2022-06-18] MEDS ORDERED: IOPAMIDOL 370 MG/ML 100 ML INFUS..BTL INJ ONE (12:55)
[2022-06-18] MEDS ORDERED: SODIUM CHLORIDE 0.9% 1000ML 1,000 ML IV SCH (14:00)
[2022-06-18] MEDS ORDERED: ONDANSETRON HCL INJ 2MG/ML 2ML 2 MG/ML VIAL IV PRN (14:00)
[2022-06-18] MEDS: Morphine 2mg Syringe 2 MG/ML SYR IV PRN (15:23)
[2022-06-18] MEDS ORDERED: DEXTROSE 50% SYRINGE 50 ML IV PRN (16:00)
[2022-06-18] MEDS ORDERED: ACETAMINOPHEN 325 MG TAB PO PRN (16:00)
[2022-06-18] MEDS: INSULIN REGULAR, HUMAN 100 UNIT/1 ML SQ SCH ×2 (16:30→21:50)
[2022-06-18] MEDS ORDERED: FUROSEMIDE 40 MG TAB PO SCH (17:00)
[2022-06-18] MEDS: URSODIOL 300 MG CAP PO SCH (17:00)
[2022-06-18 17:50] VITALS: BP 146/45
[2022-06-18] MEDS: CARVEDILOL 3.125 MG TAB PO SCH (18:34)
[2022-06-18 20:00] VITALS: BP 115/45
[2022-06-18 21:00] VITALS: BP 115/45
[2022-06-19] VITALS (8 sets, daily range): BP systolic 120–148; BP diastolic 46–72
[2022-06-19 06:04] LABS: BASOPHILS % 0.4 % (0.0-1.0); EOSINOPHILS # (AUTO) 0.1 (0.0-0.4); EOSINOPHILS % 0.6 % (0.0-6.0); HEMATOCRIT 23.2 % (34.2-44.1); HEMOGLOBIN 7.5 g/dL (12.0-16.0); LYMPHOCYTES # (AUTO) 2.5 (1.0-3.2); LYMPHOCYTES % 28.8 % (18.0-39.1); MEAN CORPUSCULAR HEMOGLOBIN 29.8 pg (28-32); MEAN CORPUSCULAR HGB CONC 32.3 g/dL (31-35); MEAN CORPUSCULAR VOLUME 92.1 fL (81-99); MONOCYTES # (AUTO) 0.8 (0.2-0.8); NEUTROPHILS # (AUTO) 5.2 (2.1-6.9); NEUTROPHILS % 60.4 % (38.7-80.0); PLATELET COUNT 286 x10e3/uL (140-360); RED BLOOD COUNT 2.52 x10e6/uL (3.6-5.1)
[2022-06-19 06:35] LABS: ALBUMIN 1.6 g/dL (3.5-5.0); ALBUMIN/GLOBULIN RATIO 0.3 (0.8-2.0); ANION GAP 10.1 mmol/L (8-16); CALCIUM 8.2 mg/dL (8.4-10.2); CREATININE, SERUM 0.82 mg/dL (0.57-1.11); POTASSIUM 4.1 mmol/L (3.5-5.1)
[2022-06-19] MEDS: INSULIN REGULAR, HUMAN 100 UNIT/1 ML SQ SCH ×4 (07:30→21:00)
[2022-06-19] MEDS: ASPIRIN 81 MG ENTERIC COATED PO SCH (08:51)
[2022-06-19] MEDS: PANTOPRAZOLE SOD 40 MG TABEC PO SCH (08:51)
[2022-06-19] MEDS: URSODIOL 300 MG CAP PO SCH ×2 (08:51→17:06)
[2022-06-19] MEDS: CARVEDILOL 3.125 MG TAB PO SCH ×2 (08:52→17:07)
[2022-06-19] MEDS: FUROSEMIDE 20 MG TAB PO SCH (08:52)
[2022-06-19] MEDS: Morphine 2mg Syringe 2 MG/ML SYR IV PRN ×2 (08:53→21:35)
[2022-06-19] MEDS ORDERED: SODIUM CHLORIDE 0.9% 250ML 250 ML ONE (15:08)
[2022-06-20] VITALS (10 sets, daily range): BP systolic 123–168; BP diastolic 49–79
[2022-06-20] MEDS: URSODIOL 300 MG CAP PO SCH ×2 (08:45→16:27)
[2022-06-20] MEDS: ASPIRIN 81 MG ENTERIC COATED PO SCH (08:46)
[2022-06-20] MEDS: PANTOPRAZOLE SOD 40 MG TABEC PO SCH (08:46)
[2022-06-20] MEDS: FUROSEMIDE 20 MG TAB PO SCH (08:46)
[2022-06-20] MEDS: CARVEDILOL 3.125 MG TAB PO SCH ×2 (08:46→16:26)
[2022-06-20] MEDS: INSULIN REGULAR, HUMAN 100 UNIT/1 ML SQ SCH ×4 (08:47→21:39)
[2022-06-20] MEDS: Morphine 2mg Syringe 2 MG/ML SYR IV PRN ×2 (10:08→21:27)
[2022-06-20] MEDS ORDERED: LACTULOSE SYRUP 20 GM/30 ML UDC PO ONE ×2 (12:30→17:00)
[2022-06-21 04:44] VITALS: BP 161/55
[2022-06-21] MEDS: INSULIN REGULAR, HUMAN 100 UNIT/1 ML SQ SCH (07:30)
[2022-06-21 08:17] VITALS: BP 173/81
[2022-06-21 08:26] VITALS: BP 173/81
[2022-06-21] MEDS: ASPIRIN 81 MG ENTERIC COATED PO SCH (09:38)
[2022-06-21] MEDS: FUROSEMIDE 20 MG TAB PO SCH (09:38)
[2022-06-21] MEDS: URSODIOL 300 MG CAP PO SCH (09:38)
[2022-06-21] MEDS: PANTOPRAZOLE SOD 40 MG TABEC PO SCH (09:38)
[2022-06-21] MEDS: CARVEDILOL 3.125 MG TAB PO SCH (09:38)
[2022-06-21] MEDS ORDERED: KEFLEX125 MG/5 M PO (11:17)
[2022-06-21 12:09] VITALS: BP 169/57
[2022-06-21] MEDS ORDERED: ONDANSETRON HCL 4 MG ORAL DISINTEGRATING TAB PO PRN (12:30)
== END 2022-06-21 12:35 | disposition home or self-care (01) | DRG 862 ==
LOC: ER 11:06 → ERHOLD 13:56 → MED/SURG3 16:58
PROVIDERS: ADMIT Internal Medicine; ATTEND Internal Medicine
PROC: 8E0ZXY6 Isolation (ICD-10-PCS; principal; 2022-06-18)
DX: T81.41XA Infection following a procedure, superficial incisional surgical site, initial encounter (principal); K75.0 Abscess of liver; U07.1 COVID-19; Z16.30 Resistance to unspecified antimicrobial drugs; C22.8 Malignant neoplasm of liver, primary, unspecified as to type; L03.311 Cellulitis of abdominal wall; D64.9 Anemia, unspecified; B96.20 Unspecified Escherichia coli [E. coli] as the cause of diseases classified elsewhere; E11.22 Type 2 diabetes mellitus with diabetic chronic kidney disease; I12.9 Hypertensive chronic kidney disease with stage 1 through stage 4 chronic kidney disease, or unspecified chronic kidney disease; N18.9 Chronic kidney disease, unspecified; E11.40 Type 2 diabetes mellitus with diabetic neuropathy, unspecified; Z86.73 Personal history of transient ischemic attack (TIA), and cerebral infarction without residual deficits; Z90.49 Acquired absence of other specified parts of digestive tract; Z79.82 Long term (current) use of aspirin
CPT/HCPCS: 0223U; 36415; 74018; 74177; 80053; 82948; 83690; 85025; 85610; 85730; 87040; 87071; 87186; 87205; 99252; 99284; J0692; J0696; J2270; J2405; J3370; J7030; J7050; Q9967